=== PATIENT | male | born 1980 | race Caucasian/White ===

== ENCOUNTER 2023-09-04 22:13 | Emergency (ER) | payer BC, SELFPAY ==
[2023-09-04 22:22] VITALS: BP 170/82; PULSE 72; RESP 16; TEMP 36.7; O2SAT 97; BMI 24.4
--- NOTE | 2023-09-04 22:26 | XR_ITS ---
The [address] [address] Patient Name: ADRIENNE ASHLEY MRN: [id number] date: 1980 Sex: M Assigned Patient Location: ER Current Patient Location: ER Accession/Order Number: [id number] Exam Date: 09/04/2023 22:45 Report Date: 09/04/2023 23:15 At the request of: JONATHAN GAN Procedure: XR hand RT min 3V EXAM: XR hand RT min 3V HISTORY: hand pain COMPARISON: None TECHNIQUE: 3 views right hand FINDINGS: No acute fracture or aggressive osseous abnormality. Joint spaces and alignment are preserved. Carpal rows and arcs are maintained. XR/XR hand RT min 3V IMPRESSION: No acute osseous abnormality of the right hand. Electronically authenticated by: JAYDEN FONG Date: 09/04/2023 23:15
--- NOTE | 2023-09-04 23:44 | ED_ITS ---
HPI - General Adult General Chief complaint: Extremity Injury, Upper Stated complaint: PAIN IN RIGHT ARM Time Seen by Provider: 09/04/23 23:41 History of Present Illness HPI narrative: 43-year-old male presents her chief complaint of right hand pain and swelling. He also complains of pain that is creeping up into his arm. No streaking is noted at this time. He states he punched a washing machine several days ago. He states that pain has subsided and then he developed increased redness and swelling to his hand. 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 Patient has pain to palpation of the hand. Some amount of fluctuance no acute abscess Related Data Home Medications Medication Instructions Recorded Confirmed No Known Home Medications 09/04/23 09/04/23 Previous Rx's Medication Instructions Recorded cephalexin 500 mg capsule 500 mg PO BID 10 days #20 caps 09/04/23 sulfamethoxazole 800 1 tab PO BID 10 days #20 tabs 09/04/23 mg-trimethoprim 160 mg tablet (Bactrim DS) Allergies Allergy/AdvReac Type Severity Reaction Status Date / Time No Known Drug Allergies Allergy Verified 09/04/23 22:25 Review of Systems ROS Narrative All Systems are negative except as noted/marked.All systems reviewed and otherwise negative PFSH PFSH Social History Smoking status: Current every day smoker Exam Narrative Exam Narrative: Nurses note and vital signs reviewed and patient is not hypoxic. General: The patient appears well and in no apparent distress. Patient is resting comfortably on cart. Skin: Warm, dry, no pallor noted. There is no rash noted. Head: Normocephalic, atraumatic Eye: Normal conjunctiva, no drainage, EOMI. PERRL Musculoskeletal: Soft tissue swelling right hand, tenderness to palpation, full range of motion of hand fingers arms. Neurological: A&O x4, normal speech Psychiatric: Cooperative Constitutional Vital Signs, click to edit/add: Last Vital Signs Temp 98.1 F 09/04/23 22:22 Pulse 72 09/04/23 22:22 Resp 16 09/04/23 22:22 BP 170/82 H 09/04/23 22:22 Pulse Ox 97 09/04/23 22:22 O2 Del Method Room Air 09/04/23 22:22 Course Vital Signs Vital signs: Vital Signs Temperature 98.1 F 12/09/23 22:22 Pulse Rate 72 09/04/23 22:22 Respiratory Rate 16 09/04/23 22:22 Blood Pressure 170/82 H 09/04/23 22:22 Pulse Oximetry 97 09/04/23 22:22 Oxygen Delivery Method Room Air 09/04/23 22:22 Temperature 98.1 F 09/04/23 22:22 Pulse Rate 72 09/04/23 22:22 Respiratory Rate 16 09/04/23 22:22 Blood Pressure 170/82 H 09/04/23 22:22 Pulse Oximetry 97 09/04/23 22:22 Oxygen Delivery Method Room Air 09/04/23 22:22 Medical Decision Making MDM Narrative Medical decision making narrative: Patient presents to [place] chief complaint of injuring his hand well excellently punching a washing machine. Two days later he has not developed redness and sw elling to his hand. He also states he has pain radiating up into the arm. Right hand soft tissue swelling noted consistent with cellulitis, no acute abscess or area to drain at this time. Patient is able to move and extend fingers without difficulty. Patient has small abrasive area to the dorsal aspect of the 3rd digit at the base of the finger area. No active abscess at this time but his fluctuant this area. Patient told to continue using warm heat compress or ice for pain. She shows nothing acute for fracture. Patient was treated here for cellulitis of Bactrim Keflex. Will be discharged home with prescriptions for both. Reasons to return to the emergency room including no fever difficulty moving hands or streaking up the arm were discussed. Patient verbalized understanding agrees with plan of care. Differential Diagnosis Differential Diagnosis: Hand fracture, sprain, cellulitis Medical Records Medical records reviewed: Yes I reviewed the patient's medical records Lab Data Lab results reviewed: Yes I reviewed the patient's lab results Imaging Data hand: Attestation: I have reviewed the pertinent imaging results. My impression: Patient Name: ADRIENNE ASHLEY MRN: [id number] date: 1980 Sex: M Assigned Patient Location: ER Current Patient Location: ER Accession/Order Number: [id number] Exam Date: 09/04/2023 22:45 Report Date: 09/04/2023 23:15 At the request of: JONATHAN GAN Procedure: XR hand RT min 3V EXAM: XR hand RT min 3V HISTORY: hand pain COMPARISON: None TECHNIQUE: 3 views right hand FINDINGS: No acute fracture or aggressive osseous abnormality. Joint spaces and alignment are preserved. Carpal rows and arcs are maintained. IMPRESSION: No acute osseous abnormality of the right hand. Electronically authenticated by: JAYDEN FONG Date: 09/04/2023 23:15 Discharge Plan Discharge Chief Complaint: Extremity Injury, Upper Clinical Impression: Cellulitis of hand, Hand swelling Patient Disposition: Home, Self-Care Time of Disposition Decision: 23:42 Condition: Good Prescriptions / Home Meds: New cephalexin 500 mg capsule 500 mg PO BID 10 Days Qty: 20 0RF sulfamethoxazole-trimethoprim [Bactrim DS] 800-160 mg tablet 1 tab PO BID 10 Days Qty: 20 0RF No Action No Known Home Medications Instructions: Cellulitis (ED) Stand Alone Forms: Portal Instructions Referrals: Hang Naqvi MD [Primary Care Provider] - 1 week Discharge Date/Time: 09/05/23 00:22
[2023-09-05] MEDS: SULFAMETHOXAZOLE/TRIMETHOPRIM 800-160 MG TABLET 1 TAB PO (00:09)
[2023-09-05] MEDS: CEPHALEXIN 500 MG CAPSULE PO (00:09)
== END 2023-09-05 00:22 | disposition home or self-care (01) ==
PROVIDERS: Emergency Provider Internal Medicine; PCP Family Medicine
DX: L03.113 Cellulitis of right upper limb (principal); R22.31 Localized swelling, mass and lump, right upper limb; F17.210 Nicotine dependence, cigarettes, uncomplicated
CPT/HCPCS: 73130; 99283

== ENCOUNTER 2025-06-23 08:03 | Outpatient (OUT) | payer BC, SELFPAY ==
--- OUTSIDE RECORDS SUMMARY | 2025-05-09 11:14 | XMS_ITS ---
Author Name Auto Generated Organization [facility] Care Team Providers Care Rn Charge Name Role Phone ANDREEA TORO Attending Unavailable PROBLEMS No Problem Records Found PROCEDURES No Procedure Records Found RESULTS No Result Records Found ALLERGIES No Allergies Records Found ENCOUNTERS ADMIT/DISCHARGE ACCOUNT NUMBER ADMITTING ENCOUNTER CLASS LOCATION SOURCE 05/09/2025/ [id number] Ambulatory Building:[facility] EPIC PAYERS ENCOUNTER GUARANTOR PAYER SUBSCRIBER SOURCE 05/09/2025 ADRIENNE COLINDRESB: [id number] [address] [address]Znp: () Primary Insurance:[employer] licy Number: [id number] ctive Date:2019-09-27 ADRIENNE FERRIS: [id number] [address] [address] [facility] EPIC
--- NOTE | 2025-06-23 | US_ITS ---
[address] [address] Patient Name: ADRIENNE ASHLEY MRN: [id number] date: 1980 Sex: M Assigned Patient Location: US Current Patient Location: Accession/Order Number: [id number] Exam Date: 06/23/2025 08:11 Report Date: 06/23/2025 19:24 At the request of: ANDREEA TORO MD Procedure: US scrotum EXAMINATION TYPE: US scrotum grayscale, color Doppler, waveform duplex analysis was performed. DATE OF EXAM ORDERED: 06/23/2025 8:30 AM HISTORY: SCROTAL MASS N50.89, swelling COMPARISON: NONE TECHNIQUE: Realtime imaging of the scrotum was performed. De Jesus scale, color Doppler and spectral Doppler imaging of the testicles was performed. FINDINGS: Testicles: Both testicles demonstrate homogeneous echotexture without intratesticular filling defect. Right measurements: 4.9 x 2.8 x 3.1 cm Left measurements: 4.8 x 3.1 x 3.1 cm Epididymis: The bilateral epididymides demonstrate normal echogenicity without focal lesion. Right measurements: 0.7 cm in greatest dimension Left measurements: 1.6 cm in greatest dimension Hydrocele: A left-sided hydrocele is present. Doppler ultrasound of the testicles: Arterial and venous waveforms are seen within both testicles. No sonographic evidence of testicular ischemia. US/US scrotum IMPRESSION: 1. The testicles are normal in size and echogenicity. No intratesticular lesions. 2. No sonographic evidence of testicular ischemia. 3. A left-sided hydrocele is present. Impression dictated by: Alex Dunn M.D. 06/23/2025 7:24 PM Dictation Location: [place] [address] Electronically authenticated by: [id number] Y Date: 06/23/2025 19:24
== END 2025-06-23 08:04 | disposition home or self-care (01) ==
PROVIDERS: PCP Family Medicine; Visit Provider Family Medicine
DX: N50.89 Other specified disorders of the male genital organs (principal); N43.3 Hydrocele, unspecified
CPT/HCPCS: 76870

== ENCOUNTER 2025-08-05 08:16 | Emergency (ER) | payer BC, SELFPAY ==
[2025-08-05] VITALS (17 sets, daily range): BP systolic 117–134; BP diastolic 83–94; PULSE 71–84; TEMP 36.5; O2SAT 93–99; BMI 24.3
--- NOTE | 2025-08-05 08:34 | ECG_ITS ---
The 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 Measurements Intervals [place] Rate: 75 P: 58 AR: 200 QRS: -51 QRSD: 134 T: 22 QT: 400 QTc: 429 Interpretive Statements 1100 Sinus rhythm 2450 Right bundle branch block 2630 Left anterior fascicular block 9150 abnormal ECG No previous ECG available for comparison Electronically Signed On 08-05-2025 9:32:40 EST by REY COBB M.D.
--- OUTSIDE RECORDS SUMMARY | 2025-08-05 08:37 | XMS_ITS | CCD ---
Author Organization [facility] Care Team Providers Care General Maintenance Technician Name Role Phone ANICETO DORADO Admitting Unavailable ANICETO DORADO Attending Unavailable ANICETO DORADO Consulting Unavailable Hang Toro MD Primary Care Provider Hang Toro MD Unavailable HANG TORO Attending Unavailable HANG TORO Primary Care Physician [phone] Gen HORTA Attending Unavailable Gen HORTA Attending Unavailable HANG TORO Referring Unavailable Allergies Allergy ClassificationReported Allergen(s)Allergy TypeDate of OnsetReaction(s) Facility (1 source)No Known Medication Allergies; Translations: [No Known Medication Allergies]Propensity to adverse reactions (disorder)[facility] Repository Medications Current Medications MedicationDrug Class(es)DatesSig (Normalized)Sig (Original)24 hr buPROPion hydrochloride 150 mg extended release oral tablet (5 sources)AminoketoneStart: 11-29-2023 End: 43-84-6292jvmi 1 tablet by mouth every twenty-four hours in the morning buPROPion XL (Wellbutrin XL) 150 MG 24 hr tablet Indications: MDD (major depressive disorder), recurrent episode, moderate (HCC) TAKE 1 TABLET (150 MG) BY MOUTH IN THE MORNING. DO NOT CRUSH, CHEW, ORSPLIT.. 90 tablet 1 11/29/2023 05/09/2025 DiscontinuedStart: 16-10-2707souf 1 tablet by mouth every twenty-four hours in the morningbuPROPion XL (Wellbutrin XL) 150 MG 24 hr tablet Indications: MDD (major depressive disorder), recurrent episode, moderate (HCC) (CMS/HCC) Take 1 tablet (150 mg) by mouth in the morning. Do not crush, chew, or split.. 30 tablet 2 11/04/2023 ActiveStart: 56-15-3170xbrs 1 tablet by mouth every twenty-four hours in the morningbuPROPion XL (Wellbutrin XL) 150 MG 24 hr tablet Indications: MDD (major depressive disorder), recurrent episode, moderate (HCC) (CMS/HCC) Take 1 tablet (150 mg) by mouth in the morning. Do not crush, chew, or split.. 30 tablet 2 11/04/2023 ActivebusPIRone hydrochloride 15 mg oral tablet (8 sources)Start: 11-29-2023 End: 07-70-0819vnzj 1 tablet by mouth in the morning, then take 1 tablet by mouth in the evening, then take 1 tablet by mouth at bedtimebusPIRone (Buspar) 15 MG tablet Indications: Generalized anxiety disorder Take 1 tablet (15 mg) by mouth in the morning and 1 tablet (15 mg) in the evening and 1 tablet (15 mg) before bedtime. 90 tablet 5 11/29/2023 05/09/2025 DiscontinuedStart: 11-04-2023 take 1 tablet by mouth in the morningbusPIRone (Buspar) 15 MG tablet Indications: Generalized anxiety disorder (CMS/HCC) Take 1 tablet (15 mg) by mouth in the morning and 1 tablet (15 mg) before bedtime. 60 tablet 3 11/04/2023 ActiveStart: 84-54-8753qjjo 1 tablet by mouth in the morningbusPIRone (Buspar) 15 MG tablet Indications: Generalized anxiety disorder (CMS/HCC) Take 1 tablet (15 mg) by mouth in the morning and 1 tablet (15 mg) before bedtime. 60 tablet 3 11/04/2023 ActiveStart: 10-08-2023 End: 23-10-1151lzdz 1 tablet by mouth in the morningbusPIRone (Buspar) 7.5 MG tablet Indications: Generalized anxiety disorder (CMS/HCC) Take 1 tablet (7.5 mg) by mouth in the morning and 1 tablet (7.5 mg) before bedtime. 60 tablet 3 10/08/2023 11/04/2023 Discontinued (Reorder)citalopram 20 mg oral tablet (2 sources)Serotonin Reuptake InhibitorStart: 10-08-2023 End: 16-74-5760wpxb 1 tablet by mouth in the morningcitalopram (CeleXA) 20 MG tablet Indications: MDD (major depressive disorder), recurrent episode, moderate (HCC) (CMS/HCC) Take 1 tablet (20 mg) by mouth in the morning. 30 tablet 3 10/08/2023 11/04/2023 Discontinuedpermethrin 50 mg/ml topical cream (3 sources)PyrethroidStart: 08-04-2024 End: 75-37-7167oqwpxqqans (Elimite) 5 % cream Indications: Head lice apply to skin from hairline to toes and wash off 8-10 hours later 60 g 1 08/04/2024 05/09/2025 Discontinued Problems Active Problems Problem ClassificationProblemDateDocumented DateEpisodic/ChronicAnxiety disorders (9 sources)Generalized anxiety disorder; Translations: [Generalized anxiety disorder]Onset: [id number]; including migraine (1 source)Upgrasyo48-97-1280ZxkxtohuEnno disorders (8 sources)Recurrent major depressive episodes, moderate ; Translations: [Major depressive disorder, recurrent, moderate]Onset: 190936-99-0036LxmwozlRlyty female genital disorders (1 source)Disorder of reproductive tnzoll65-59-2109NefspwppEfaua male genital disorders (4 sources)Scrotal mass; Translations: [Other specified disorders of the male genital organs]Onset: 476471-41-4937JyhwszpvVdcye male genital disorders (1 source)Hydrocele of testis; Translations: [Hydrocele, unspecified]Onset: 36-28-4827GroovmumMqbyqvixa-related disorders (1 source)Owybpa04-73-1650YusgbfqVtxlilk on above:Added secondary to documentation in Social History.Unclassified (1 source)Myalgia, unspecified site; Translations: [MYALGIA UNSPECIFIED SITE] Onset: 72-05-5583Tjbydbahcxhk (1 source)Harmful pattern of substance btn89-54-9902 Past or Other Problems Problem ClassificationProblemDateDocumented DateEpisodic/ChronicGenitourinary symptoms and ill-defined conditions (6 sources)Microscopic hematuria; Translations: [Other microscopic hematuria] Onset: 10-08-2023 Resolved: 267242-07-4414KcnangtaFrwtnix and fatigue (10 sources)Other fatigue; Translations: [Fatigue]Onset: 05-23-2019 Resolved: 172445-52-0600IqrdtqzzElghm connective tissue disease (6 sources)Muscle pain; Translations: [Myalgia, unspecified site]Onset: 608112-36-6495KwaozheiQoqzq non-traumatic joint disorders (6 sources)Pain in left knee; Translations: [Pain in joint, lower leg]Onset: 906931-49-4161WguvlystRqnioe media and related conditions (6 sources)Otitis media; Translations: [Otitis media, unspecified, left ear] Onset: 10-08-2023 Resolved: 430114-36-1403KsqjfgcoTmycijtlqlp; intervertebral disc disorders; other back problems (6 sources)Chronic low back pain; Translations: [Chronic low back pain]Onset: 371939-96-6542Geoqzpvw Results Test NameValueInterpretationReference RangeFacilityAmbulatory Visit Summaryon 20-57-0147Hdigdyjrwr Visit SummaryAmbulatory Visit Summary ADRIENNE ASHLEY :1980 Visit Date:07/16/2025 Ambulatory Visit Instructions Your Diagnosis Left hydrocele Your Care Team Attending Physician - HERNÁN FOLEY, Gen Kulkarni Primary Care Physician - CORTEZ FOLEY, HANG Referring Physician - HANG TORO MD Procedures Performed Procedure on back. Discharge Vitals Temperature (Temporal Artery) 37 ???C Heart Rate (Peripheral) 78 Respiratory Rate 16 Blood Pressure 134/86 Height 180 cm Height 71 in Weight 81.2 kg Weight 179.015 lb BMI 25.06 What to do next Scheduled Follow-Up Appointments Wednesday2025 10:15 AM EDT With: Gen HORTA MD Where: [facility] [address] [place] [address]- You Need to Schedule the Following Appointments Follow Up with Gen HORTA MD, URL When: Where: [address] [place] [address] Allergies No Known Medication Allergies Problems Ongoing - Any problem that you are currently receiving treatment for. Abuse, drug or alcohol Headache Left hydrocele Smoker Patient Survey You may receive a survey via text or e-mail asking about your office visit. Please share your experience with us by completing your survey. We appreciate your feedback and thank you for choosing us for your care. Education Materials Steps to Quit Smoking Smoking tobacco is the leading cause of preventable . It can affect almost every organ in the body. Smoking puts you and those around you at risk for developing many serious chronic diseases. Quitting smoking can be very challenging. Do not get discouraged if you are not successful the first time. Some people need to make many attempts to quit before they achieve long-term success. Do your best to stick to your quit plan, and talk with your health care provider if you have any questionsor concerns. How do I get ready to quit? When you decide to quit smoking, create a plan to help you succeed. Before you quit: ??? Pick a date to quit. Set a date within the next 2 weeks to give you time to prepare. ??? Write down the reasons why you are quitting. Keep this list in places where you will see it often. ??? Tell your family, friends, and co-workers that you are quitting. Support from people you are close to can make quitting easier. ??? Talk with your health care provider about your options for quitting smoking. ??? Find out what treatment options are covered by your health insurance. ??? Identify people, places, things, and activities that make you want to smoke (triggers). Avoid them. What first steps can I take to quit smoking? Throw away all cigarettes at home, at work, and in your car. ??? Throw away smoking accessories, such as ashtrays and lighters. ??? Clean your car. Make sure to empty the ashtray. ??? Clean your home, including curtains and carpets. What strategies can I use to quit smoking? Talk with your health care provider about combining strategies, such as taking medicines while you are also receiving in-person counseling. Using these two strategies together makes you more likely to succeed in quitting than if you used either strategy on its own. If you are or , talk with your health care provider about finding counseling or other support strategies to quit smoking. Do not take medicine to help you quit smoking unless your health care provider tells you to. Quit right away ??? Quit smoking completely, instead of gradually reducing how much you smoke over a period of time. Stopping smoking right away may be more successful than gradually quitting. ??? Attend in-person counseling to help you build problem-solving skills. You are more likely to succeed in quitting if you attend counseling sessions regularly. Even short sessions of 10 minutes can be effective. Take medicine You may take medicines to help you quit smoking. Some medicines require a prescription. You can also purchase atjv-ayb-xmvlwnp medicines. Medicines may have nicotine in them to replace the nicotine in cigarettes. Medicines may: ??? Help to stop cravings. ??? Help to relieve withdrawal symptoms. Your health care provider may recommend: ??? Nicotine patches, gum, or lozenges. ??? Nicotine inhalers or sprays. ??? Non-nicotine medicine that you take by mouth. Find resources Find resources and support systems that can help you quit smoking and remain smoke-free after you quit. These resources are most helpful when you use them often. They include: ??? Online chats with a counselor. ??? Telephone quitlines. ??? Printed self-help materials. ??? Support groups or group counseling. ??? Text messaging programs. ??? Mobile phone apps or applications. Use apps that can help you stick to your quit plan by providing reminders, (more content not included)...[facility] Center[facility] Office/Clinic Noteon 65-73-7785Vnufzwd Office/Clinic Note Urology Office/Clinic Note Chief Complaint hydrocele HPI Staff 45 yr old male referred by Hang Toro MD for Left hydrocele. Left hydrocele noted on Scrotal US done 06/23/25. IPSS score today is 4. Nocturia x1. Frequency less than half the time. Incomplete emptying less than 1 in 5x. Denies all other urinary concerns at this time. Pt states that he noticed a lump on his testicle about 4 months ago. States that it is uncomfortable but not really painful. Denies any trauma to the scrotum. History of Present Illness Tests reviewed: reviewed UA, referral records, scrotal US I have reviewed the previous health record information and history for this patient from external providers. I have reviewed and verified the staff HPI to be accurate for this encounter. Review of Systems PHQ Score Initial Depression Screen Score: 0 SCORE ROS - Provider Constitutional: denies weight loss, denies hot flashes. Eyes: denies eye problems. Gastrointestinal: denies nausea, denies vomiting. Cardiovascular: denies chest pain or angina. Integumentary: no dryness Musculoskeletal: denies musculoskeletal symptoms. ENMT: denies otolaryngeal symptoms. Respiratory: no shortness of breath. Heme/Lymph: denies easy bleeding tendency, denies easy bruising tendency. Psychiatric: no confusion, no anxiety. Genitourinary: See HPI. Physical Exam Vitals & Measurements T: 37 ???C(Temporal Artery) HR: 78(Peripheral) RR: 16 BP: 134/86 HT: 71 in HT: 180 cm WT: 81.2 kg WT: 179.015 lb BMI: 25.06 General Appearance: alert, no distress, well nourished, well developed male. Genitourinary: large left hydrocele. Assessment/Plan Adrienne is a 45 yo M new pt referred for L hydrocele. IPSS 4. UA shows trace-intact blood, clinically neg. No bother with urination. 1. Left hydrocele (N43.3: Hydrocele, unspecified) Scrotal US 06/23/25 [facility] - L hydrocele. Noticed scrotal mass several months ago. Mild discomfort 1x/month but denies bother. Discussed the options for his hydrocele. There is no absolute indication that he needs this repaired. Do not recommend aspiration. As the fluid collection increases in size and becomes more symptomatic, he may consider repair. There is a 10-15% chance of recurrence of this scrotal fluid collection, which may require another procedure in the future. Given lack of effect on urination or other activities, intervention is not warranted. However large size does make him a candidate for hydrocelectomy. Pt would like to monitor for now. -F/u 1 yr -Cont self-monitoring, call if hydrocele enlarges/becomes bothersome Follow-up With When Contact Information HERNÁN FOLEY, Gen Kulkarni, URL [address] [facility] [place] [address] Additional Instructions: 1 yr (no labs) Patient Education Hydrocele, Adult I, Shy Benton, personally scribed for Dr. Horta on 07/16/2025 10:39:05. . Documentation recorded by the Shy tolliver, accurately reflects the services(s) I performed and decisions made by me. Authenticated by Dr. Horta on 07/16/2025 10:45:57. Problem List/Past Medical History Ongoing Abuse, drug or alcohol Headache Left hydrocele Smoker Historical No qualifying data Procedure/Surgical History Procedure on back. Medications No active medications Allergies No Known Medication Allergies Social History Tobacco Smoker, current status unknown Tobacco Use:. Never Smokeless Tobacco Use:. Cigarettes, 07/16/2025 Lab Results Ambulatory Point of Care Results Bilirubin Urine Dipstick: Negative (07/16/25 10:05:00) Blood Urine Dipstick: Trace-intact (07/16/25 10:05:00) Glucose Urine Dipstick: Negative (07/16/25 10:05:00) Ketones Urine Dipstick: Negative (07/16/25 10:05:00) Leukocytes Urine Dipstick: Negative (07/16/25 10:05:00) Nitrite Urine Dipstick: Negative (07/16/25 10:05:00) Protein Urine Dipstick: Negative (07/16/25 10:05:00) Specific [place] Urine Dipstick: 1.015 (07/16/25 10:05:00) Urine Appearance Urine Dipstick: Clear (07/16/25 10:05:00) Urine Color Urine Dipstick: Yellow (07/16/25 10:05:00) Urobilinogen Urine Dipstick: Normal 0.2-1 EU/dl (07/16/25 10:05:00) pH Urine Dipstick: 7.5 (07/16/25 10:05:00)[facility] Comment on above:Result Comment: Electronically Signed By: Gen HORTA MD\.br\Date and Time Signed: 07/16/25 10:46 EDT\.br\Electronically Co-Signed By: Shy Benton\Date and Time Co-Signed: 07/16/25 10:39 EDTCBC AUTO DIFFon 79-10-9095Yogghviwf (Bld) [#/Vol]0.1 103/ulNormal0.0-0.1[facility] [place] [facility] Comment on above:Performed By: #### CBC #### [facility] [address] [place] [address] Audra KarenBasophils/100 WBC (Bld)0.8 %Normal0.2-2.0[facility] Comment on above:Performed By: #### CBC #### [facility] [address] [place] [address] Audra KarenEosinophils (Bld) [#/Vol]0.0 103/ulNormal0.0-0.7[facility] [place] [facility] HospitalComment on above:Performed By: #### CBC #### [facility] [address] [place] [address] Audra KarenEosinophils/100 WBC (Bld)0.5 %Critically low0.9-7.0[facility] [place] [facility] HospitalComment on above:Performed By: #### CBC #### [facility] [address] [place] [address] Audra KarenErythrocyte distribution width (RBC) [Ratio]13.3 %Pvyubm32.0-15.0[facility] [place] [facility] HospitalComment on above:Performed By: #### CBC #### [facility] [address] [place] [address] Audra KarenHematocrit (Bld) [Volume fraction]45.7 %Agyabh20.0-54.0[facility] [place] [facility] HospitalComment on above:Performed By: #### CBC #### [facility] [address] [place] [address] Audra KarenHemoglobin (Bld) [Mass/Vol]15.7 g/qSUknzzz91.0-18.0[facility] [place] [facility] HospitalComment on above:Performed By: #### CBC #### [facility] [address] [place] [address] Audra KarenIG #0.01 10e3/ulNormal0.00-0.03[facility] [place] [facility] HospitalComment on above:Performed By: #### CBC #### [facility] [address] [place] [address] Audra KarenIG %0.2 %Normal0.0-0.5[facility] [place] [facility] HospitalComment on above: Performed By: #### CBC #### [facility] [address] [place] [address] Audra KarenLymphocytes (Bld) [#/Vol]1.0 103/ulCritically low1.2-3.8[facility] [place] [facility] HospitalComment on above:Performed By: #### CBC #### [facility] [address] [place] [address] Audra KarenLymphocytes/100 WBC (Bld)16.0 %Critically low20.5-60.0[facility] [place] [facility] HospitalComment on above:Performed By: #### CBC #### [facility] [address] [place] [address] Audra KarenMANUAL DIFF REQNONormalThe [place] [facility] HospitalComment on above: Performed By: #### CBC #### [facility] [address] [place] [address] Audra KarenMCH (RBC) [Entitic mass]31.2 woItvnqs53.9-34.0[facility] Comment on above:Performed By: #### CBC #### [facility] [address] [place] [address] Audra KarenMCHC (RBC) [Mass/Vol]34.4 g/lAAyowfw22.9-35.2[facility] Comment on above:Performed By: #### CBC #### [facility] [address] [place] [address] Audra KarenMCV (RBC) [Entitic vol]90.7 oQFplqid93.0-94.0[facility] Comment on above:Performed By: #### CBC #### [facility] [address] [place] [address] Audra KarenMonocytes (Bld) [#/Vol]0.6 103/ulNormal0.3-0.8ThC[facility] Comment on above:Performed By: #### CBC #### [facility] [address], [place] [address] Audra KarenMonocytes/100 WBC (Bld)9.5 %Normal1.7-12.0[facility] Comment on above:Performed By: #### CBC #### [facility] [address] [place], [place] [id number] Audra KarenNeutrophils (Bld) [#/Vol]4.4 103/ulNormal1.4-6.5The [place] [facility] HospitalComment on above:Performed By: #### CBC #### [facility] [address] [place], [place] [id number] Audra KarenNeutrophils/100 WBC (Bld)73.0 %Tmjcgt76.0-75.0[facility] Comment on above:Performed By: #### CBC #### [facility] [address] [place] [address] Audra KarenPlatelet mean volume (Bld) [Entitic vol]9.6 fLNormal9.5-13.5The [place] [facility] HospitalComment on above:Performed By: #### CBC #### [facility] [address] [place], [place] [address] Audra KarenPlatelets (Bld) [#/Vol]248 103/fjQhryuw762-452FqxCleveland Clinic Foundation Comment on above:Performed By: #### CBC #### [facility] [address] [place], [place] [id number] Audra KarenRBC (Bld) [#/Vol]5.04 106/ulNormal4.70-6.10[facility] Comment on above:Performed By: #### CBC #### [facility] [address] [place], [place] [address] Audra KarenWBC (Bld) [#/Vol]6.0 103/ulNormal4.0-11.0[facility] Comment on above:Performed By: #### CBC #### [facility] [address] [place], [place] [id number] Audra KarenCPKon 76-81-6797DQ [Catalytic activity/Vol]108 U/PNwqden21-795Gcv [facility] HospitalComment on above:Performed By: #### CRP, TSH, CK, CMP #### [facility] [address] [place] [address] Audra KarenCRPon 14-74-6118HFL [Mass/Vol]4.3 mg/dLCritically high<=1.0The [place] [facility] HospitalComment on above:Performed By: #### CRP, TSH, CK, CMP #### [facility] [address] [place] [address] Audra KarenFREE T4on 03-59-6140Hnpw T4 [Mass/Vol]0.89 ng/dLNormal0.78-2.19The [place] [facility] HospitalComment on above:Performed By: #### FT4 #### [facility] [address] [place] [address] Audra KarenPROF 14(COMP METB)on 63-73-4376Aerxnda [Mass/Vol]3.7 g/dLNormal 3.5-5.0The [place] [facility] HospitalComment on above:Performed By: #### CRP, TSH, CK, CMP #### [facility] [address] [place] [address] Audra KarenAlbumin/Globulin [Mass ratio]1.1 {ratio}NormalCleveland Clinic Foundation Comment on above:Performed By: #### CRP, TSH, CK, CMP #### [facility] [address] [place] [address] Audra KarenALP [Catalytic activity/Vol]92 U/MLgeasi61-351Jeu [facility] Comment on above:Performed By: #### CRP, TSH, CK, CMP #### [facility] [address] [place] [address] Audra KarenALT [Catalytic activity/Vol]24 U/GAoynvv30-09Cyv [facility] Comment on above:Performed By: #### CRP, TSH, CK, CMP #### [facility] [address] [place] [address] Audra KarenAnion gap [Moles/Vol]11.7 mmol/LNormalThe [place] [facility] HospitalComment on above:Performed By: #### CRP, TSH, CK, CMP #### [facility] [address] [place] [address] Audra KarenAST [Catalytic activity/Vol]21 U/RBxpbiz62-17StrC[facility] Clinic Foundation Comment on above:Performed By: #### CRP, TSH, CK, CMP #### [facility] [address] [place] [address] Audra KarenBilirubin Ql (U)0.7 mg/dLNormal0.2-1.3TBethesda North HospitalComment on above:Performed By: #### CRP, TSH, CK, CMP #### [facility] [address] [place] [address] Audra KarenCalcium [Mass/Vol]9.2 mg/dLNormal8.4-10.2[facility] Comment on above:Performed By: #### CRP, TSH, CK, CMP #### [facility] [address] [place] [address] Audra KarenChloride [Moles/Vol]104 mmol/AAmikda02-426VyyCleveland Clinic Foundation Comment on above:Performed By: #### CRP, TSH, CK, CMP #### [facility] [address] [place] [address] Audra KarenCO2 [Moles/Vol]28.0 mmol/OYxqayw39.0-30.0[facility] Comment on above:Performed By: #### CRP, TSH, CK, CMP #### [facility] [address] [place] [address] Audra KarenCreatinine [Mass/Vol]0.88 mg/dLNormal0.66-1.25The [facility] Comment on above:Performed By: #### CRP, TSH, CK, CMP #### [facility] [address] [place] [address] Audra KarenEGFR-AF HUNGARIAN>60Normal>=60The [place] [facility] HospitalComment on above: Performed By: #### CRP, TSH, CK, CMP #### [facility] [address] [place], [place] [address] Audra KarenEGFR-NON AF HUNGARIAN>60Normal>=60The [place] [facility] HospitalComment on above:Performed By: #### CRP, TSH, CK, CMP #### [facility] [address] [place] [address] Audra KarenGlobulin (S) [Mass/Vol]3.3 g/dLNormUniversity Hospitals Health SystemComment on above:Performed By: #### CRP, TSH, CK, CMP #### [facility] [address] [address] Audra KarenGlucose [Mass/Vol]89 mg/jUZsuoxv55-964Gja [facility] HospitalComment on above:Performed By: #### CRP, TSH, CK, CMP #### [facility] [address] [place] [address] Audra KarenPotassium [Moles/Vol]3.7 mmol/LNormal3.4-5.0[facility] Comment on above:Performed By: #### CRP, TSH, CK, CMP #### [facility] [address] [place] [address] Audra KarenProtein [Mass/Vol]7.0 g/dLNormal6.1-8.2The [place] [facility] HospitalComment on above:Performed By: #### CRP, TSH, CK, CMP #### [facility] [address] [place] [address] Audra KarenSodium [Moles/Vol]140 mmol/YMkcrqq879-349Qny [facility] Comment on above:Performed By: #### CRP, TSH, CK, CMP #### [facility] [address] [place] [address] Audra KarenUrea nitrogen [Mass/Vol]11.0 mg/dLNormal9.0-20.0The [facility] HospitalComment on above:Performed By: #### CRP, TSH, CK, CMP #### [facility] [address] [place] [address] Audra KarenUrea nitrogen/Creatinine [Mass ratio]12.5 mg/mgNormalThCleveland Clinic Fairview HospitalComment on above:Performed By: #### CRP, TSH, CK, CMP #### [facility] [address] [place] [address] Audra KarenSED RATE WESTERGRENon 05-79-2007JKN RATE12 mm/hrNormal<=15The [facility] HospitalComment on above:Performed By: #### SEDR #### [facility] [address] [place] [address] Audra KarenSEDRHMETHOD AND NORMAL CHANGE 11/01/15. RESULTS ARE NOT AFFECTED BY HEMATOCRIT.NormalThe [facility] HospitalComment on above:Performed By: #### SEDR #### [facility] [address] [place] [address] Audra KarenTSHon 86-19-8557JLE QnSEE BELOWNormalThCleveland Clinic Fairview HospitalComment on above:Result Comment: <0.34 UIU/ml HYPERTHYROID 0.34-5.60 UIU/ml EUTHYROID >5.60 UIU/ml HYPOTHYROIDPerformed By: #### CRP, TSH, CK, CMP #### [facility] [address] [place] [address] Audra KarenTSH Qn3.486 uIU/mLNormal0.470-4.680The [facility] HospitalComment on above:Performed By: #### CRP, TSH, CK, CMP #### [facility] [address] [place] [address] Audra KarenUA RANDOM W/MICROSCOPICon 12-90-9319Xvqswera LM.HPF (Urine sed) [#/Area]NONE SEENNormalNONE SEENThe [facility] HospitalComment on above:Performed By: #### UAMIC #### [facility] [address] [place] [address] Audra KarenBilirubin [Mass/Vol]NegativeNormalNEGATIVECleveland Clinic Foundation Comment on above:Performed By: #### UAMIC #### [facility] [address] [place] [address] Audra KarenBLOODSMALLNormalNEGATIVECleveland Clinic FoundationComment on above: Performed By: #### UAMIC #### [facility] [address] [place] [address] Audra KarenCASTNONE SEENNormalNONE SEENCleveland Clinic FoundationComment on above: Performed By: #### UAMIC #### [facility] [address] [address] Audra KarenClarity (U)CLEARNoKeenan Private HospitalComment on above: Performed By: #### UAMIC #### [facility] [address] [place] [address] Audra KarenColor (U)LT. YELLOWNormalYELLOWCleveland Clinic FoundationComment on above:Performed By: #### UAMIC #### [facility] [address] [place] [address] Audra KarenCrystals LM Nom (Urine sed)NONE SEENNormalNONE SEENCleveland Clinic FoundationComment on above:Performed By: #### UAMIC #### [facility] [address] [place] [address] Audra KarenEpithelial cells LM.HPF (Urine sed) [#/Area]RAREAvita Health System Galion HospitalComment on above:Performed By: #### UAMIC #### [facility] [address] [place] [address] Audra KarenGlucose [Mass/Vol]NegativeNormalNEGATIVECleveland Clinic FoundationComgarden city hospital on above:Performed By: #### UAMIC #### [facility] [address] [place] [address] Audra KarenKetones Ql (U)NegativeNormalNEGATIVECleveland Clinic FoundationComment on above:Performed By: #### UAMIC #### [facility] [address] [place] [address] Audra KarenMUCOUSNONE SEENNormalNONE [facility] HospitalComg[facility] on above: Performed By: #### UAMIC #### [facility] [address] [place] [address] Audra KarenNitrite Ql (U)NegativeNormalNEGATIVECleveland Clinic FoundationComment on above:Performed By: #### UAMIC #### [facility] [address] [place] [address] Audra KarenpH (Bld)7.7Dkrmuv5-0HbsCleveland Clinic FoundationComment on above:Performed By: #### UAMIC #### [facility] [address] [place] [address] Audra KarenProtein [Mass/Vol]NegativeNormUniversity Hospitals Health SystemComment on above:Performed By: #### UAMIC #### [facility] [address] [place] [address] Audra KarenRBC (Bld) [#/Vol]9-7Rtgrzo5-2Ntn [facility] HospitalComment on above: Performed By: #### UAMIC #### [facility] [address] [place] [address] Audra KarenSPEC GRAVITY<=1.074Qwyjef4.005-<=1.025The [facility] HospitalComment on above:Performed By: #### UAMIC #### [facility] [address] [place] [address] Audra KarenUrobilinogen Qn (U)0.2 EU/dlNormUniversity Hospitals Health SystemComment on above:Performed By: #### UAMIC #### [facility] [address] [place] [address] Audra KarenWBC (Bld) [#/Vol]NegativeNormalNEGATIVECleveland Clinic FoundationComment on above:Performed By: #### UAMIC #### [facility] [address] [place] [address] Audra KarenWBC (Bld) [#/Vol]NONE SEENNormalNONE SEENCleveland Clinic Foundation Comment on above:Performed By: #### UAMIC #### [facility] [address] [place] [address] Audra Galvanen Vital Signs Date TimeVital SignValuePerforming KzaymuwegBdlqgadl20-30-7864 11:30-0400Body owcqta165.3 cmHang Toro MD Work Phone: [facility]OSaint [facility] SpringsTgryxtezgu21-41-4281 11:30-0400Body mass index (BMI) [Ratio]24.55 kg/m2Hang Toro MD Work Phone: [facility] CenterXojrujwtkl84-99-4835 11:30-0400Body temperature 97.3 [degF]Hang Toro MD Work Phone: [facility] CenterOiqlyqluat70-57-8044 11:30-0400Body myoegj38.83 kgHang Toro MD Work Phone: [facility] CenterLitfhxwjwt49-18-0312 11:30-0400Diastolic blood innftxqe75 mm[Hg]Hang Toro MD Work Phone: [facility] CenterThkdjqzwel22-78-1586 11:30-0400Heart rate85 /min Hang Toro MD Work Phone: [facility] CenterWdinndbrfk04-10-8305 11:30-0400Respiratory rate18 /minHang Toro MD Work Phone: [facility] CenterUkfboqnfxl81-89-2835 11:30-1270SrF0% (BldA) [Mass fraction]92 %Hang Toro MD Work Phone: [facility] CenterWjhomocvek09-92-0527 11:30-0400Systolic blood hslnokps753 mm[Hg]Hang Toro MD Work Phone: [facility] CenterMfywxysmdh87-66-1046 09:40-0500Body hclzia715.3 cmHang Toro MD Work Phone: [facility] CenterTlagainsic94-92-4145 09:40-0500Body mass index (BMI) [Ratio]26.5 kg/m2Hang Toro MD Work Phone: [facility] CenterHnmfkddomg97-85-7252 09:40-0500Body temperature 97.81 [degF]Hang Toro MD Work Phone: [facility] CenterUefxjmsqjz78-12-7332 09:40-0500Body xsxwoh62.18 kgHang Toro MD Work Phone: [facility] CenterZattxvfmma51-40-9502 09:40-0500Diastolic blood jkgapmjz84 mm[Hg]Hang Toro MD Work Phone: [facility] Ogvuyjioch04-89-5504 09:40-0500Heart rate74 /min Hang Toro MD Work Phone: [facility] Taqsewtcqh39-97-1626 09:40-2851RzW2% (BldA) [Mass fraction]96 %Hang Toro MD Work Phone: [facility] Iiwgdbyvwe61-13-9956 09:40-0500Systolic blood gqsipatl866 mm[Hg]Hang Toro MD Work Phone: [facility] Encounters Encounter DateEncounter TypeCare ProviderFacilityStart: 57-08-1750ijqbxumuixpablo HORTAFacility:[place]Start: 07-16-2025 End: 33-16-5082zahwdryilnYsnmovb R WATERSFacility:[facility] [place]Start: 07-16-2025 End: 83-16-6303Bvigtne encounter procedurePazac HORTA [facility] Cristiana start: 76-00-6876qiqkwovcxaXqzxcyt WATERSFacility:EU [place]Start: 05-09-2025 End: 25-16-4054Nyvesi Maria C Toro MD Work Phone: [facility] FMStart: 05-09-2025 End: 68-28-5030Uqyjcs flowsKaran Toro MD Work Phone: [facility] FMStart: 05-09-2025 End: 13-69-6052Vsvswh outpatient visit 25 minutesHang Toro MD Work Phone: [facility] CWM FMComment on above:Mass, scrotum (Primary Dx) Start: 05-09-2025 End: 35-64-6184pzkhmwmxjpKSOK NADERERNot AvailableStart: 51-08-5741QuvnddZlpg Naderer MD Work Phone: [facility] FMComment on above:Generalized anxiety disorder (CMS/HCC)Start: 11-04-2023 End: 72-54-0228Fgqfdl outpatient visit 15 minutesHang Toro MD Work Phone: noMS CWM FMComment on above:MDD (major depressive disorder), recurrent episode, moderate (HCC) (CMS/HCC) (Primary Dx); Generalized anxiety disorder (CMS/HCC)Start: 05-23-2019 End: 13-18-2658Agjpumy encounter procedureLISA AICHHOLZFacility:H1 Procedures DateProcedureProcedure DetailPerforming ClinicianProcedure on backPanprogress Plan of Treatment DateCare ActivityDetailAuthorStart: 06-54-7671Xfvgrcoac vaccinationInfluenza Vaccine (#1)[facility] HealthcareStart: 05-09-2025 End: 77-21-0108HK Scrotum and testicleUS scrotum Imaging Routine Mass, scrotum Expected: 05/09/2025, Expires: 05/09/2026[facility] Work Phone: Comment on above:Expected: 05/09/2025, Expires: 05/09/2026Start: 05-09-2025 End: 06-49-4922Ktgmmcc encounter tzzbdbyjg01/13/2025 11:15 AM EDT Office Visit [facility] [address] [place] [address] Hang Toro MD [address] [place] [phone] ArrivedNOMS CWM FMComment on above:ArrivedStart: 11-29-2023 End: 39-48-3126Qwndpsu encounter ljjjytvyr07/04/2024 9:30 AM EST Office Visit [facility] [address] [place] [address] Hang Toro MD [address] [place] [phone] [facility] FMStart: 90-62-4013Algzpuqyg vaccinationInfluenza Vaccine (#1)[facility]OM HealthcareStart: 67-76-1103Xjcptmpit for malignant neoplasm of colonNOMS Healthcare Payers DatePayer CategoryPayerPolicy [id number] Cross Blue ShieldBCBS [id number] BCBS [id number] 2019- [phone] [id number] [place], [place] [id number] Health Insurance [id number] [id number] [id number] [id number] [id number] 2..[id number] Social History DateTypeDetailFacilityStart: 91-38-9359Denjrma smoking status NHISSmokes tobacco dailySEVIER VALLEY [facility]ITAL HealthcareStart: 57-03-8204Nfpivbf of tobacco useCigarette SmokerSEVIER VALLEY HOSPITAL HealthcareStart: 10-08-2023 End: 11-37-6153Vpevurbqnz smoked current (pack per day) - Urihgqeo1OSLE HealthcareStart: 73-76-1675Pxuffcr use and exposureSmokeless tobacco non-user [facility] HealthcareStart: 11-04-2023 End: 57-49-6959Usdcosv intakeCurrent drinker of alcohol (finding)[facility] Start: 10-08-2023 End: 20-34-1372Raqsbwy use panelSEVIER VALLEY HOSPITAL HealthcareStart: 47-17-1143Jebpsah Comment 6-10 cigs/ daySEVIER VALLEY HOSPITAL HealthcareStart: 70-53-0876Sgqquav Commentcaffeine intake : energy drinks; sodaNOPA HealthcareStart: 35-56-4199Nwp Assigned At BirthNot on [facility] HealthcareStart: 27-14-4499Nlultyg smoking statusSmoker (finding) [facility] HospitalTobacco smoking status NeverExecutive [facility]rology of [facility] Medical Centerexual Orientation [facility] sexMale (finding)[facility] Discharge instructions 07-16-2025 Note Date & NgziVcnoEyzaayke55-01-6569 Hospital Discharge instructions Patient Education 07/16/2025 10:40:12 Steps to Quit Smoking Steps to Quit Smoking Smoking tobacco is the leading cause of preventable . It can affect almost every organ in the body. Smoking puts you and those around you at risk for developing many serious chronic diseases. Quitting smoking can be very challenging. Do not get discouraged if you are not successful the first time. Some people need to make many attempts to quit before they achieve long-term success. Do your best to stick to your quit plan, and talk with your health care provider if you have any questionsor concerns. How do I get ready to quit? When you decide to quit smoking, create a plan to help you succeed. Before you quit: Pick a date to quit. Set a date within the next 2 weeks to give you time to prepare. Write down the reasons why you are quitting. Keep this list in places where you will see it often. Tell your family, friends, and co-workers that you are quitting. Support from people you are close to can make quitting easier. Talk with your health care provider about your options for quitting smoking. Find out what treatment options are covered by your health insurance. Identify people, places, things, and activities that make you want to smoke (triggers). Avoid them. What first steps can I take to quit smoking? Throw away all cigarettes at home, at work, and in your car. Throw away smoking accessories, such as ashtrays and lighters. Clean your car. Make sure to empty the ashtray. Clean your home, including curtains and carpets. What strategies can I use to quit smoking? Talk with your health care provider about combining strategies, such as taking medicines while you are also receiving in-person counseling. Using these two strategies together makes you more likely to succeed in quitting than if you used either strategy on its own. If you are or , talk with your health care provider about finding counseling or other support strategies to quit smoking. Do not take medicine to help you quit smoking unless your health care provider tells you to. Quit right away Quit smoking completely, instead of gradually reducing how much you smoke over a period of time. Stopping smoking right away may be more successful than gradually quitting. Attend in-person counseling to help you build problem-solving skills. You are more likely to succeed in quitting if you attend counseling sessions regularly. Even short sessions of 10 minutes can be effective. Take medicine You may take medicines to help you quit smoking. Some medicines require a prescription. You can also purchase puiz-hqg-ekxpclj medicines. Medicines may have nicotine in them to replace the nicotine in cigarettes. Medicines may: Help to stop cravings. Help to relieve withdrawal symptoms. Your health care provider may recommend: Nicotine patches, gum, or lozenges. Nicotine inhalers or sprays. Non-nicotine medicine that you take by mouth. Find resources Find resources and support systems that can help you quit smoking and remain smoke-free after you quit. These resources are most helpful when you use them often. They include: Online chats with a counselor. Telephone quitlines. Printed self-help materials. Support groups or group counseling. Text messaging programs. Mobile phone apps or applications. Use apps that can help you stick to your quit plan by providing reminders, tips, and encouragement. Examples of free services include Quit Guide from the CDC and smokefree.gov What can I do to make it easier to quit? Reach out to your family and friends for support and encouragement. Call telephone quitlines, such as 9-891-OVEE-NOW, reach out to support groups, or work with a counselor for support. Ask people who smoke to avoid smoking around you. Avoid places that trigger you to smoke, such as bars, parties, or smoke-break areas at work. Spend time with people who do not smoke. Lessen the stress in your life. Stress can be a smoking trigger for some people. To lessen stress, try: ?Exercising regularly. ?Doing deep-breathing exercises. ?Doing yoga. ?Meditating. What benefits will I see if I quit smoking? Over time, you should start to see positive results, such as: Improved sense of smell and taste. Decreased coughing and sore throat. Slower heart rate. Lower blood pressure. Clearer and healthier skin. The ability to breathe more easily. Fewer sick days. Summary Quitting smoking can be very challenging. Do not get discouraged if you are not successful the first time. Some people need to make many attempts to quit before they achieve long-term success. When you decide to quit smoking, create a plan to help you succeed. Quit smoking right away, not slowly over a period of time. Find resources and support systems that can help you quit smoking and remain smoke-free after you quit. This information is not intended to replace advice given to you by your health care provider. Make sure you discuss any questions you have with your health care provider. Document Revised: 09/04/2022 Document Reviewed: 09/04/2022 [employer] Patient Education 2023 [employer] 07/16/2025 10:34:06 Hydrocele, Adult Hydrocele, Adult A hydrocele is a collection of fluid in the loose pouch of skin that holds the testicles (scrotum).It can occur in one or both testicles. This may happen because: The amount of fluid produced in the scrotum is not absorbed by the rest of the body. Fluid from the abdomen fills the scrotum. Normally, the testicles develop in the abdomen and then drop into the scrotum before . The tube that the testicles travel through usually closes after the testicles drop. If the tube does not close, fluid from the abdomen can fill the scrotum. This is not very common in adults. What are the causes? A hydrocele may be caused by: An injury to the scrotum. An infection. Decreased blood flow to the scrotum. Twisting of a testicle (testicular torsion). A defect. A tumor or cancer of the testicle. Sometimes, the cause is not known. What are the signs or symptoms? A hydrocele feels like a water-filled balloon. It may also feel heavy. Other symptoms include: Swelling of the scrotum. The swelling may decrease when you lie down. You may also notice more swelling at night than in the morning. This is called a communicating hydrocele, in which the fluid in the scrotum goes back into the abdominal cavity when the position of the scrotum changes. Swelling of the groin. Mild discomfort in the scrotum. Pain. This can develop if the hydrocele was caused by infection or twisting. The larger the hydrocele, the more likely you are to have pain. Swelling may also cause pain. How is this diagnosed? This condition may be diagnosed based on a physical exam and your medical history. You may also have tests, including: Imaging tests, such as an ultrasound. A transillumination test. This test takes place in a dark room where a light is placed on the skin of the scrotum. Clear liquid will not impede the light and the scrotum will be illuminated. This helps a health care provider distinguish a hydrocele from a tumor. Blood or urine tests. How is this treated? Most hydroceles go away on their own. If you have no discomfort or pain, your health care provider may suggest close monitoring of your condition until the condition goes away or symptoms develop. This is called watch and wait or watchful waiting. If treatment is needed, it may include: Treating an underlying condition. This may include taking an antibiotic medicine to treat an infection. Having surgery to stop fluid from collecting in the scrotum. Having surgery to drain the fluid. Surgery may include: ?Hydrocelectomy. For this procedure, an incision is made in the scrotum to remove the fluid. ?Needle aspiration. A needle is used to drain fluid. However, the fluid buildup will come back quickly and may lead to an infection of the scrotum. This is rarely done. Follow these instructions at home: Medicines Take rjmx-woz-tbkrvei and prescription medicines only as told by your health care provider. If you were prescribed an antibiotic medicine, take it as told by your health care provider. Do notstop taking the antibiotic even if you start to feel better. General instructions Watch the hydrocele for any changes. Keep all follow-up visits. This is important. Contact a health care provider if: You notice any changes in the hydrocele. The swelling in your scrotum or groin gets worse. The hydrocele becomes red, firm, painful, or tender to the touch. You have a fever. Get help right away if you: Develop a lot of pain or your pain becomes worse. Have chills. Have a high fever. Summary A hydrocele is a collection of fluid in the loose pouch of skin that holds the testicles (scrotum). A hydrocele can cause swelling, discomfort, and pain. In adults, the cause of a hydrocele may not be known. However, it is sometimes caused by an infection or the twisting of a testicle. Hydroceles often go away on their own. If a hydrocele causes pain, treating the underlying cause may be needed to ease the pain. This information is not intended to replace advice given to you by your health care provider. Make sure you discuss any questions you have with your health care provider. Document Revised: 04/30/2022 Document Reviewed: 04/30/2022 [employer] Patient Education 2023 [employer]. Follow Up Care 07/06/2025 15:40:55 With:HERNÁN FOLEY, Gen Kulkarni, URL Address: [address] [place] [phone] When: Unknown [facility] Clinical Note 07-16-2025 Note Date & RnwuMpwhIhqxydqd22-67-0813 NotePatient Education Pulmonary Medicine Steps to Quit Smoking Smoking tobacco is the leading cause of preventable . It can affect almost every organ in the body. Smoking puts you and those around you at risk for developing many serious chronic diseases. Quitting smoking can be very challenging. Do not get discouraged if you are not successful the first time. Some people need to make many attempts to quit before they achieve long-term success. Do your best to stick to your quit plan, and talk with your health care provider if you have any questionsor concerns. How do I get ready to quit? When you decide to quit smoking, create a plan to help you succeed. Before you quit: ??? Pick a date to quit. Set a date within the next 2 weeks to give you time to prepare. ??? Write down the reasons why you are quitting. Keep this list in places where you will see it often. ??? Tell your family, friends, and co-workers that you are quitting. Support from people you are close to can make quitting easier. ??? Talk with your health care provider about your options for quitting smoking. ??? Find out what treatment options are covered by your health insurance. ??? Identify people, places, things, and activities that make you want to smoke (triggers). Avoid them. What first steps can I take to quit smoking? Throw away all cigarettes at home, at work, and in your car. ??? Throw away smoking accessories, such as ashtrays and lighters. ??? Clean your car. Make sure to empty the ashtray. ??? Clean your home, including curtains and carpets. What strategies can I use to quit smoking? Talk with your health care provider about combining strategies, such as taking medicines while you are also receiving in-person counseling. Using these two strategies together makes you more likely to succeed in quitting than if you used either strategy on its own. If you are or , talk with your health care provider about finding counseling or other support strategies to quit smoking. Do not take medicine to help you quit smoking unless your health care provider tells you to. Quit right away ??? Quit smoking completely, instead of gradually reducing how much you smoke over a period of time. Stopping smoking right away may be more successful than gradually quitting. ??? Attend in-person counseling to help you build problem-solving skills. You are more likely to succeed in quitting if you attend counseling sessions regularly. Even short sessions of 10 minutes canbe effective. Take medicine You may take medicines to help you quit smoking. Some medicines require a prescription. You can also purchase xroz-uwy-iipszxd medicines. Medicines may have nicotine in them to replace the nicotine in cigarettes. Medicines may: ??? Help to stop cravings. ??? Help to relieve withdrawal symptoms. Your health care provider may recommend: ??? Nicotine patches, gum, or lozenges. ??? Nicotine inhalers or sprays. ??? Non-nicotine medicine that you take by mouth. Find resources Find resources and support systems that can help you quit smoking and remain smoke-free after you quit. These resources are most helpful when you use them often. They include: ??? Online chats with a counselor. ??? Telephone quitlines. ??? Printed self-help materials. ??? Support groups or group counseling. ??? Text messaging programs. ??? Mobile phone apps or applications. Use apps that can help you stick to your quit plan by providing reminders, tips, and encouragement. Examples of free services include Quit Guide from the CDC and smokefree.gov What can I do to make it easier to quit? Reach out to your family and friends for support and encouragement. Call telephone quitlines, such as 1-563-SZOA-NOW, reach out to support groups, or work with a counselor for support. ??? Ask people who smoke to avoid smoking around you. ??? Avoid places that trigger you to smoke, such as bars, parties, or smoke- break areas at work. ??? Spend time with people who do not smoke. ??? Lessen the stress in your life. Stress can be a smoking trigger for some people. To lessen stress, try: ? Exercising regularly. ? Doing deep-breathing exercises. ? Doing yoga. ? Meditating. What benefits will I see if I quit smoking? Over time, you should start to see positive results, such as: ??? Improved sense of smell and taste. ??? Decreased coughing and sore throat. ??? Slower heart rate. ??? Lower blood pressure. ??? Clearer and healthier skin. ??? The ability to breathe more easily. ??? Fewer sick days. Summary ??? Quitting smoking can be very challenging. Do not get discouraged if you are not successful the first time. Some people need to make many attempts to quit before they achieve long-term success. ??? When you decide to quit smoking, create a plan to help you succeed. ??? Quit smoking right away, not s (more content not included)...[facility] History of Present illness Narrative 05-09-2025 Note Date & [id number] History of Present illness Narrative* Hang Toro MD - 05/09/2025 12:24 PM EDTAssociated Problem(s): Mass, scrotum Soft mass on back left testicle likely corresponding to hydrocele. Check US scrotum. If abnormal orworsens can refer to urology. * YORDAN AMAYA - 05/09/2025 11:15 AM EDT mass * Hang Toro MD - 05/09/2025 11:15 AM EDT Images from the original note were not included. Subjective Patient ID: Adrienne Ashley is a 44 y.o. male who presents for Groin Swelling (Mass in scrotum ). Concerned of mass in scrotum for several months. Noticed lump on back left testicle for months. Doesn't think it's increased in size since first appeared. Mild discomfort and tenderness but not painful. No change in pain with lifting or activity. Feels soft and squishy. Denies any firm lumps on testicles. Not notice anything on right side. Never had in the past. Review of Systems Constitutional: Negative for fatigue. Respiratory: Negative for cough, shortness of breath and wheezing. Cardiovascular: Negative for chest pain and palpitations. Gastrointestinal: Negative for abdominal pain, diarrhea, nausea and vomiting. Genitourinary: Negative for dysuria. Objective Physical Exam Constitutional: General: He is not in acute distress. Appearance: Normal appearance. HENT: Head: Normocephalic. Right Ear: Tympanic membrane and ear canal normal. Left Ear: Tympanic membrane and ear canal normal. Eyes: Extraocular Movements: Extraocular movements intact. Pupils: Pupils are equal, round, and reactive to light. Cardiovascular: Rate and Rhythm: Normal rate and regular rhythm. Heart sounds: No murmur heard. No friction rub. No gallop. Pulmonary: Breath sounds: Normal breath sounds. No wheezing, rhonchi or rales. Abdominal: General: Bowel sounds are normal. There is no distension. Palpations: Abdomen is soft. Tenderness: There is no abdominal tenderness. There is no guarding or rebound. Musculoskeletal: Left lower leg: No edema. Neurological: Mental Status: He is alert. Assessment/Plan Problem List Items Addressed This Visit Mass, scrotum - Primary Soft mass on back left testicle likely corresponding to hydrocele. Check US scrotum. If abnormal orworsens can refer to urology. Relevant Orders US scrotum [facility] of Present illness Narrative 11-04-2023 Note Date & [id number] History of Present illness Narrative* Hang Toro MD - 11/04/2023 10:16 AM ESTAssociated Problem(s): MDD (major depressive disorder), recurrent episode, moderate (HCC) (CMS/HCC) Continued symptoms and start wellbutrin. Warned will take 2-3 weeks to notice improvement in mood. * Hang Toro MD - 11/04/2023 10:16 AM ESTAssociated Problem(s): Generalized anxiety disorder (CMS/HCC) Continued symptoms and start wellbutrin. Warned will take 2-3 weeks to notice improvement in mood. Increase buspar for symptoms. * Hang Toro MD - 11/04/2023 9:45 AM EST Subjective Patient ID: Adreinne Ashley is a 43 y.o. male who presents for Follow-up (1 m). Follow up depression and anxiety. Tried celexa but noticed sexual side effects. Stewardson like it was blocked and couldn't finish or would lose erection too soon. Stopped medication and symptoms resolved after few days. Continues to have depression. Down, sad, and no motivation. Not want to do anything or be around others. Girlfriend off her medication due to no insurance and her depression has triggered his symptoms. Taking buspar and anxiety slightly better. Continues to have symptoms and at times severe. Nervous and worry all the time. Stressed out and overwhelmed. Thought racing and hard to clear mind. Her, irritable and snapping at others. Easily upset and overreact. Review of Systems Constitutional: Negative for fatigue. Respiratory: Negative for cough, shortness of breath and wheezing. Cardiovascular: Negative for chest pain and palpitations. Gastrointestinal: Negative for abdominal pain, diarrhea, nausea and vomiting. Genitourinary: Negative for dysuria. Objective Physical Exam Constitutional: General: He is not in acute distress. Appearance: Normal appearance. HENT: Head: Normocephalic. Right Ear: Tympanic membrane and ear canal normal. Left Ear: Tympanic membrane and ear canal normal. Eyes: Extraocular Movements: Extraocular movements intact. Pupils: Pupils are equal, round, and reactive to light. Cardiovascular: Rate and Rhythm: Normal rate and regular rhythm. Heart sounds: No murmur heard. No friction rub. No gallop. Pulmonary: Breath sounds: Normal breath sounds. No wheezing, rhonchi or rales. Abdominal: General: Bowel sounds are normal. There is no distension. Palpations: Abdomen is soft. Tenderness: There is no abdominal tenderness. There is no guarding or rebound. Musculoskeletal: Left lower leg: No edema. Neurological: Mental Status: He is alert. Assessment/Plan Problem List Items Addressed This Visit Generalized anxiety disorder (CMS/HCC) Continued symptoms and start wellbutrin. Warned will take 2-3 weeks to notice improvement in mood. Increase buspar for symptoms. Relevant Medications busPIRone (Buspar) 15 MG tablet MDD (major depressive disorder), recurrent episode, moderate (HCC) (CMS/HCC) - Primary Continued symptoms and start wellbutrin. Warned will take 2-3 weeks to notice improvement in mood. Relevant Medications buPROPion XL (Wellbutrin XL) 150 MG 24 hr tablet [facility] Plan note Note Date & TypeNoteFacilityEvaluation + Plan note Future Appointments Appointment Date:07/15/2026 10:15:00 AM Scheduled Provider:Gen HORTA MD Location:[facility] Appointment Type:URO Office Visit [facility] Evaluation note Note Date & TypeNoteFacilityEvaluation note* Diagnosis Generalized anxiety disorder (CMS/HCC) Generalized anxiety disorder documented in this encounter [facility] Evaluation note Note Date & TypeNoteFacilityEvaluation note* Diagnosis MDD (major depressive disorder), recurrent episode, moderate (HCC) (CMS/HCC)- Primary Generalized anxiety disorder (CMS/HCC) Generalized anxiety disorder documented in this encounter [facility] Evaluation note Note Date & TypeNoteFacilityEvaluation note* Diagnosis MDD (major depressive disorder), recurrent episode, moderate (HCC)- Primary Generalized anxiety disorder Generalized anxiety disorder MDD (major depressive disorder), recurrent episode, moderate (HCC)- Primary Generalized anxiety disorder Generalized anxiety disorder MDD (major depressive disorder), recurrent episode, moderate (HCC)- Primary Generalized anxiety disorder Generalized anxiety disorder Mass, scrotum- Primary Other specified disorder of male genital organs documented in this encounter [facility] Hospital course Narrative Note Date & TypeNoteFacilityHospital course Narrative No data available for this section [facility] Progress note Note Date & TypeNoteFacilityProgress note No data available for this section [facility] Summary Purpose Family History No Family History Records FoundNo Family History Records Found No data available for this section No Family History Records Found Advance Directives No Advanced Directives Records FoundNo Advanced Directives Records FoundNo Advanced Directives Records Found Additional Source Comments (unrecognized sect ion and content) No Status Records FoundNo Status Records FoundNo Status Records Found INFORMATION SOURCE (unrecogn ized section and content) DATE CREATED AUTHOR 06/03/2019 [facility] DATE CREATED AUTHOR AUTHOR'S ORGANIZ ATION 05/11/2025 [facility] EPIC DATE CREATED AUTHOR AUTHOR'S ORGANIZ ATION 07/18/2025 [facility] Reason for Visit (unrecogniz ed section and content) ReasonCommentsMed Change RequestReasonCommentsFollow-up1 mReasonCommentsGroin SwellingMass in scrotum Care Teams (unrecognized sec tion and content) Team MemberRelationshipSpecialtyStart DateEnd Date Hang Toro MD [address] [place] [phone] PCP - GeneralFamily Medicine10/28/23Team MemberRelationshipSpecialtyStart DateEnd Date Hang Toro MD [address] [place] [address] PCP - GeneralFamily Medicine10/28/23Team MemberRelationshipSpecialtyStart DateEnd Date Hang Toro MD [address] [place] [address] PCP - GeneralFamily Medicine10/28/23 Hang Toro MD [address] [place] [address] PCP - [place] [facility]11/26/23Team MemberRelationshipSpecialtyStart DateEnd Date Hang Toro MD [address] [place] [address] PCP - GeneralFamily Medicine10/28/23 Hang Toro MD [address] [place] [address] ANH Peralta11/26/23 FOR RECORDS PERTAINING TO PATIENTS WHO ARE OR HAVE BEEN ENROLLED IN A CHEMICAL DEPENDENCY/SUBSTANCEABUSE PROGRAM, SOME INFORMATION MAY BE OMITTED. This clinical summary was aggregated from multiple sources. Caution should be exercised in using it in the provision of clinical care. This summary normalizes information from multiple sources, and as a consequence, information in this document may materially change the coding, format and clinical context of patient data. In addition, data may be omitted in some cases. CLINICAL DECISIONS SHOULD BE BASED ON THE PRIMARY CLINICAL RECORDS. [facility] [employer] [facility]. provides no warranty or guarantee of the accuracy or completeness of information in this document.
--- OUTSIDE RECORDS SUMMARY | 2025-08-05 08:39 | XMS_ITS | Clinical Summary ---
Author Organization [facility] Address [address] [place] [address] Care Team Providers Care Provider Relations Advocate Name Role Phone Hang Naqvi MD Primary Care Provider [phone] Hang Naqvi MD Unavailable Allergies No known active allergies Medications No known medications Active Problems ProblemNoted DateDiagnosed DateMass, szgeefk3105/09/2025 Assessment & Plan (05/09/2025 12:24 PM EDT): Soft mass on back left testicle likely corresponding to hydrocele. Check US scrotum. If abnormal orworsens can refer to urology. Generalized anxiety sbdxsqce79/12/2024 Assessment & Plan (11/29/2023 10:04 AM EST): Symptoms controlled with buspar but feels like need extra dose at times. Increase to TID. Assessment & Plan (11/04/2023 10:16 AM EST): Continued symptoms and start wellbutrin. Warned will take 2-3 weeks to notice improvement in mood. Increase buspar for symptoms. Assessment & Plan (10/08/2023 10:11 AM EST): Severe symptoms and not functioning well. Start celexa and warned will take 2-3 weeks to notice improvement in mood. Start buspar for symptoms. Chronic low back pain10/08/2023MDD (major depressive disorder), recurrent episode, fgqmwocl88/12/2024 Assessment & Plan (11/29/2023 10:03 AM EST): Occasional symptoms but tolerable without medication and monitor. Assessment & Plan (11/04/2023 10:16 AM EST): Continued symptoms and start wellbutrin. Warned will take 2-3 weeks to notice improvement in mood. Assessment & Plan (10/08/2023 10:12 AM EST): Severe symptoms and not functioning well. Start celexa and warned will take 2-3 weeks to notice improvement in mood. Rlkkaih7010/08/2023Left knee pain10/08/2023 Resolved Problems ProblemNoted DateDiagnosed DateResolved YkedFxfmcrx90Left otitis media with spontaneous rupture of /04/2024Hematuria, ljhelizsnqy45 Encounters DateTypeDepartmentCare SvtjRwwqwaogjzn00/13/2025 11:15 AM EDTOffice Visit [facility] [place] [facility] [address] [place] [address] Hang Naqvi MD Mass, scrotum (Primary Dx)05/09/2025amboo flowsheet [facility] [address] [place] [phone] Hang Naqvi MD from Last 3 Months Family History Medical HistoryRelationNameCommentsAlcohol abuseFatheretoh abuseNo Known ProblemsMotherRelationNameStatusCommentsFatherDeceasedMotherAlive Social History Tobacco UseTypesPacks/DayYears UsedDateSmoking Tobacco: Every WrsBhmosprjib403.9 Started: 09/28/2000Smokeless Tobacco: Never Tobacco Cessation:Ready to Q uit: No; Counseling Given: Not Answered Comments:6-10 cigs/ day Alcohol UseStandard Drinks/WeekCommentsYes0 (1 standard drink = 0.6 oz pure alcohol)caffeine intake : energy drinks; sodaPHQ-2AnswerDate RecordedPatient Health Questionnaire-2 Biatj605Sex and Gender InformationValueDate RecordedSex Assigned at BirthNot on fileLegal JkiWnvy5312/09/2022 6:39 PM EDT Gender IdentityNot on fileSexual OrientationNot on file Last Filed Vital Signs Vital SignReadingTime TakenCommentsBlood Uifbbezy421/5808 11:30 AM EDT Navys4376 11:30 AM JVRMnwtiloqfyy25.3 ??C (97.3 ??F)05/09/2025 11:30 AM EDTRespiratory Slnv6679 11:30 AM EDTOxygen Blxfrujjaw51%05/09/2025 11:30 AM EDTInhaled Oxygen Concentration--Xqlfdk77.8 kg (176 lb)05/09/2025 11:30 AM ZTQEcbavv101.3 cm (5' 11 )05/09/2025 11:30 AM EDTBody Mass Index24.55005/09/2025 11:30 AM EDT Plan of Treatment Health MaintenanceDue DateLast DoneCommentsCT Acmsofcjwtxe1979Colonoscopy 1979Colorectal Cancer Zeehhxfrp1979FIT-DNA1979FIT1979 FOBT1980 7441Odztyuqpilmht1979Pneumococcal Vaccine: Pediatrics (0 to 5 Years) and At-Risk Patients (6 to 64 Years) (1 of 2 - PCV)1998COVID-19 Vaccine (1 - season)2025Influenza Vaccine (#1)[address] [place] [id number] Care Teams Team MemberRelationshipSpecialtyStart DateEnd Date Hang Naqvi MD PCP - [facility]10/28/23 Hang Naqvi MD [address] [place] [address] [facility]11/26/23
--- OUTSIDE RECORDS SUMMARY | 2025-08-05 08:39 | XMS_ITS | Clinical Summary ---
Author Organization [facility] Address [id number] [place] [address] Care Team Providers Care Concrete Batcher Name Role Phone Hang Naqvi MD Primary Care Provider Allergies No known active allergies Medications No known medications Social History Tobacco UseTypesPacks/DayYears UsedDateSmoking Tobacco: Every DaySmokeless Tobacco: NeverAlcohol UseStandard Drinks/WeekCommentsNever0 (1 standard drink = 0.6 oz pure alcohol)AUDIT-CAnswerDate RecordedQ1: How often do you have a drink containing alcohol?Never1Average Number of DrinksNot on file11/11/2020 Frequency of Binge DrinkingNot on file1ChildcareAnswerDate Recorded EimmjpzlrGtbdowr59/15/2021mploymentAnswerDate RecordedEmploymentUnknown 1Purpose - LifeAnswerDate RecordedPurpose and direction in lifeUnknown 11/11/2020ex and Gender InformationValueDate RecordedSex Assigned at BirthNot on fileLegal CbcKdxr4905/02/2015 11:53 AM EDTGender IdentityNot on fileSexual OrientationNot on file Last Filed Vital Signs Vital SignReadingTime TakenCommentsBlood Pwkjasyc713/76011/11/2020 11:01 AM EST Cfuou850711/11/2020 11:10 AM BEKGqaeltujqqm02.6 ??C (97.9 ??F)11/11/2020 7:29 AM ESTRespiratory Zfxh922011/11/2020 11:10 AM ESTOxygen Piovbvuizw66%11/11/2020 11:09 AM ESTInhaled Oxygen Concentration--Josssf60.4 kg (175 lb)11/11/2020 7:29 AM EST Neptag179.9 cm (6')11/11/2020 7:29 AM ESTBody Mass Index23.7311/11/2020 7:29 AM EST Plan of Treatment Health MaintenanceDue DateLast DoneCommentsDepression Cejueobum79/24/1991Tobacco Aldomuynr35/24/1991Adult BMI Scemlpnxb90/24/1997DTaP,Tdap and Td Vaccines (1 - Tdap)1998Influenza Jilbsmd2605/28/2025 Medical Devices Not on file Insurance * Guarantor: Farooq GarzaAccount TypeRelation to PatientDate of PhoneBilling AddressPersonal/FobnsgBnmh1980 [address] [address] Care Teams Team MemberRelationshipSpecialtyStart DateEnd Date Hang Naqvi MD PCP - GeneralFamily Medicine11/11/20
--- NOTE | 2025-08-05 08:41 | CT_ITS ---
[address] [address] Patient Name: ADRIENNE ASHLEY MRN: [id number] date: 1980 Sex: M Assigned Patient Location: ER Current Patient Location: Accession/Order Number: [id number] Exam Date: 08/05/2025 08:52 Report Date: 08/05/2025 09:40 At the request of: CHIQUIS WOODARD DO Procedure: CT angio chest CT angio chest 08/05/2025 9:05 AM SIGN AND SYMPTOMS: chest pain, SOB, heavy tobacco use CONTRAST: 100 mL of intravenous Omnipaque 350 TECHNIQUE: Multidetector CT axial slices of the chest were obtained with IV contrast. Multiplanar reformats were performed and viewed on a separate workstation and reviewed to further define anatomy and possible pathology. CT was performed with one or more of the following dose reduction techniques: Automated exposure control, adjustment of the mA and/or kV according to patient size, or use of iterative reconstruction technique. COMPARISON: None. FINDINGS: Lower neck: Thyroid gland within normal limits, no supraclavicle adenopathy. Vessels: Within normal limits. There is no evidence of pulmonary embolism. Mediastinum and Miranda: Within normal limits. Heart: Normal size. No pericardial effusion. Airways: Within normal limits. Lungs: Mild diffuse emphysematous changes are noted. There is a 3 mm pleural-based nodule medially in the right upper lobe adjacent to the ascending aorta. There is a 3 mm calcified granuloma in the left lower lobe. Pleura: Within normal limits. Chest Wall: Within normal limits. Upper Abdomen: Within normal limits. Bones: Posttraumatic and postoperative changes are present in the upper lumbar spine. Degenerative changes are noted in the thoracic spine. CT/CT angio chest IMPRESSION: There is no evidence of pulmonary embolism. No acute cardiopulmonary pathology. Mild emphysematous changes are noted. Impression dictated by: Alex Dunn M.D. 08/05/2025 9:40 AM Dictation Location: [place] [address] Electronically authenticated by: [id number] Y Date: 08/05/2025 09:40
[2025-08-05 08:45] LABS: Hematocrit 43.0 % (42.0-54.0); Hemoglobin 14.7 g/dL (14.0-18.0); Immature Granulocytes Abs Auto 0.02 10^3/uL (0.00-0.03); Immature Granulocytes Pct Auto 0.2 % (0.0-0.5); Lymphocytes Absolute Auto 2.3 10^3/uL (1.2-3.8); Mean Corpuscular HGB Conc 34.2 g/dL (29.9-35.2); Mean Corpuscular Hemoglobin 30.9 pg (25.9-34.0); Mean Corpuscular Volume 90.3 fL (80.0-94.0); Platelet Count 316 10^3/uL (150-450); Red Blood Count 4.76 10^6/uL (4.70-6.10); White Blood Count 9.0 10^3/uL (4.0-11.0)
[2025-08-05 09:02] LABS: Alanine Aminotransferase 42 U/L (16-63); Albumin Globulin Ratio 1.2; Albumin Level 3.7 g/dL (3.4-5.0); Alkaline Phosphatase 120 U/L (46-116); Anion Gap 15.9; Aspartate Amino Transferase 24 U/L (15-37); Blood Urea Nitrogen 13.0 mg/dL (7.0-18.0); Calcium 8.7 mg/dL (8.5-10.1); Carbon Dioxide 25.8 mmol/L (21.0-32.0); Chloride 103 mmol/L (98-107); Estimated GFR (African America >60 (>=60 mL/min/1.73m^2); Estimated GFR (Non-African Ame >60 (>=60 mL/min/1.73m^2); Globulin 3.0 g/dL; Glucose 116 mg/dL (74-106); Magnesium 2.2 mg/dL (1.8-2.4); Potassium 3.7 mmol/L (3.5-5.1); Sodium 141 mmol/L (136-145); Total Protein 6.7 g/dL (6.4-8.2)
[2025-08-05] MEDS: ASPIRIN 81 MG TAB.CHEW 324 MG PO (09:46)
--- NOTE | 2025-08-05 10:03 | ED.GENADUL1 ---
HPI HPI - General Adult General Chief complaint: Chest Pain Stated complaint: CHEST AND BACK PAIN Time Seen by Provider: 08/05/25 08:19 Source: patient and family Mode of arrival: walk-in Limitations: no limitations History of Present Illness HPI narrative: Patient is a 45-year-old male presenting to the emergency department for evaluation of chest pain. Patient states that he had an episode of chest pain earlier this morning approximately 3 hours prior to arrival. He states he was sitting at his desk when he had left-sided chest pain that radiated to his back. He felt dizzy and lightheaded and nauseous as well. The symptoms resolved after about 7 minutes. Then, he started walking to his truck leaving work, and then started experiencing the chest pain though less severe this time. He had 2 more episodes of this before reporting to the ED. He denies history of chronic medical conditions including previous AK or CAD. He denies any fevers or chills. No abdominal pain, constipation, melena, or any other concerning symptoms. He is currently asymptomatic. He does smoke 2 packs of cigarettes daily for over 10 years and 5 Monster energy drinks daily. Related Data Previous Rx's ?Medication ?Instructions ?Recorded aspirin 81 mg tablet 81 mg PO DAILY #30 tabs 08/05/25 Allergies Allergy/AdvReac Type Severity Reaction Status Date / Time No Known Drug Allergies Allergy Verified 08/05/25 08:21 Review of Systems ROS Status of ROS 10 or more systems reviewed and unremarkable except as noted in history and below [facility] Social History Smoking status: Current every day smoker Little interest or pleasure in doing things: not at all Feeling down, depressed, or hopeless: not at all Exam Narrative Exam Narrative: CONSTITUTIONAL: Well-appearing, answering questions and following commands appropriately SKIN: Was warm and dry. EYES: No conjunctival pallor. EARS, NOSE, THROAT: No JVD. RESPIRATORY: Clear to auscultation bilaterally, no wheezes, crackles, or stridor, no use of accessory muscles CARDIOVASCULAR: Normal rate and regular rhythm. There is no S3, S4, murmur, rub. Radial and dorsalis pedis pulses are 2+ and symmetrical. GASTROINTESTINAL: Abdomen was soft, non-tender, and non-distended. There is no guarding or rebound tenderness MUSCULOSKELETAL: There was no lower extremity edema, erythema, or tenderness. NEUROLOGIC: Patient is awake and alert. Facies were symmetrical. Constitutional Vital Signs, click to edit/add: Last Vital Signs Temp 97.7 F 08/05/25 08:40 Pulse 80 08/05/25 08:21 Resp 18 08/05/25 08:21 BP 117/94 H 08/05/25 08:21 Pulse Ox 98 08/05/25 08:21 O2 Del Method Room Air 08/05/25 08:21 Course Vital Signs Vital signs: Vital Signs Pulse Rate 80 08/05/25 08:21 Respiratory Rate 18 08/05/25 08:21 Blood Pressure 117/94 H 08/05/25 08:21 Pulse Oximetry 98 08/05/25 08:21 Oxygen Delivery Method Room Air 08/05/25 08:21 Temperature 97.7 F 08/05/25 08:40 Pulse Rate 80 08/05/25 08:21 Respiratory Rate 18 08/05/25 08:21 Blood Pressure 117/94 H 08/05/25 08:21 Pulse Oximetry 98 08/05/25 08:21 Oxygen Delivery Method Room Air 08/05/25 08:21 Medical Decision Making [facility] Narrative Medical decision making narrative: Patient is a 45-year-old male presenting to the emergency department for multiple episodes of chest pain beginning a few hours prior to arrival. His vital signs on arrival are within normal limits. He is afebrile and hemodynamically stable. He has a normal physical examination and is currently asymptomatic without any active chest pain. Differential diagnosis includes ACS, arrhythmia, pneumothorax, PE, pneumonia, or other electrolyte/metabolic derangement. IV was established and laboratory studies were obtained. He was given 325mg aspirin. Laboratory studies were unremarkable. No significant electrolyte or metabolic derangement. No evidence of acute kidney injury. No anemia, leukocytosis, or thrombocytopenia. No transaminitis or hyperbilirubinemia. Initial and repeat 2-hour troponin were 12 and 23 respectively. CTA of the chest independently reviewed and interpreted by myself and radiology demonstrated no acute cardiopulmonary process. 12 Lead EKG: Normal sinus rhythm at a rate of 75. Left axis deviation with prolonged QRS duration of 134, consistent with left anterior fascicular block. RSR prime configurations in lead V1 and V2, consistent with RBBB. No ST segment elevations. VA interval at the high end of normal at 200 ms. No prior EKG for comparison. Final impression: Normal sinus rhythm with bifascicular block. No evidence of STEMI. Given the patient's symptoms plus bifascicular block, I did consult and discuss the patient with scale tester Dr. Chapa. He recommneded repeat troponin (which I did order and result is reported above). He recommends outpatient follow-up in his clinic. He also recommended 81 mg daily aspirin. I do believe the patient is stable for discharge. They were instructed to follow up with Dr. Bird as soon as possible. Return precautions were given including any new or worsening symptoms, including syncope, chest pain, palpitation, or any other concerning symptoms. They were given a prescription for aspirin 81 mg daily. Patient understands and agrees to the plan. FINAL IMPRESSION: #Acute chest pain #Acute pre-syncope #Age-indeterminate bifascicular block DISPOSITION: Discharged home CONDITION: Good Medical Records Medical records reviewed: Yes I reviewed the patient's medical records Lab Data Lab results reviewed: Yes I reviewed the patient's lab results Labs: Lab Results 08/05/25 08/05/25 Range/Units 08:32 10:05 WBC 9.0 (4.0-11.0) 10^3/uL RBC 4.76 (4.70-6.10) 10^6/uL Hgb 14.7 (14.0-18.0) g/dL Hct 43.0 (42.0-54.0) % MCV 90.3 (80.0-94.0) fL MCH 30.9 (25.9-34.0) pg MCHC 34.2 (29.9-35.2) g/dL RDW 13.7 (11.0-15.0) % Plt Count 316 (150-450) 10^3/uL MPV 9.3 L (9.5-13.5) fL Neut % (Auto) 63.2 (43.0-75.0) % Lymph % (Auto) 25.4 (20.5-60.0) % [place] % (Auto) 6.5 (1.7-12.0) % Eos % (Auto) 3.9 (0.9-7.0) % Baso % (Auto) 0.8 (0.2-2.0) % Neut # (Auto) 5.7 (1.4-6.5) 10^3/uL Lymph # (Auto) 2.3 (1.2-3.8) 10^3/uL [place] # (Auto) 0.6 (0.3-0.8) 10^3/uL Eos # (Auto) 0.4 (0.0-0.7) 10^3/uL Baso # (Auto) 0.1 (0.0-0.1) 10^3/uL Abs Immat Gran (auto) 0.02 (0.00-0.03) 10^3/uL Imm/Tot Granulo (auto) 0.2 (0.0-0.5) % D-Dimer <0.19 (<=0.59) mg/L FEU Sodium 141 (136-145) mmol/L Potassium 3.7 (3.5-5.1) mmol/L Chloride 103 (98-107) mmol/L Carbon Dioxide 25.8 (21.0-32.0) mmol/L Anion Gap 15.9 BUN 13.0 (7.0-18.0) mg/dL Creatinine 0.95 (0.70-1.30) mg/dL Est GFR ( Amer) >60 (>=60 mL/min/1.73m^2) Est GFR (Non-Af Amer) >60 (>=60 mL/min/1.73m^2) BUN/Creatinine Ratio 13.7 Glucose 116 H (74-106) mg/dL Calcium 8.7 (8.5-10.1) mg/dL Magnesium 2.2 (1.8-2.4) mg/dL Total Bilirubin 0.5 (0.2-1.0) mg/dL AST 24 (15-37) U/L ALT 42 (16-63) U/L Alkaline Phosphatase 120 H (46-116) U/L Troponin I High Sens 12.2 23.4 (4.0-76.1) pg/mL Total Protein 6.7 (6.4-8.2) g/dL Albumin 3.7 (3.4-5.0) g/dL Globulin 3.0 g/dL Albumin/Globulin Ratio 1.[address] scan - chest: Attestation: I personally reviewed and interpreted this imaging study as follows: Radiologist's impression: ITS Impressions Chest CTA 11/09/25 08:41 IMPRESSION: There is no evidence of pulmonary embolism. No acute cardiopulmonary pathology. Mild emphysematous changes are noted. Impression dictated by: Alex Dunn M.D. 08/05/2025 9:40 AM Dictation Location: [place] Electronically authenticated by: [id number] Y Date: 08/05/2025 09:40 ECG Data Attestation: I personally reviewed and interpreted this ECG as follows: Discharge Plan Discharge Chief Complaint: Chest Pain Clinical Impression: Chest pain, Pre-syncope, Bifascicular block Patient Disposition: Home, Self-Care Time of Disposition Decision: 10:04 Condition: Good Mode of Transportation: Private Vehicle Prescriptions / Home Meds: New aspirin 81 mg tablet 81 mg PO DAILY Qty: 30 0RF Print Language: Telugu Instructions: Chest Pain (ED) Referrals: Chad Chapa [Other, Cardiology] - As soon as possible Clinical Impression: Bifascicular block
== END 2025-08-05 11:09 | disposition home or self-care (01) ==
PROVIDERS: Emergency Provider Student in an Organized Health Care Education/Training Program; PCP Family Medicine
DX: R07.89 Other chest pain (principal); R42 Dizziness and giddiness; R11.0 Nausea; R55 Syncope and collapse; I45.2 Bifascicular block
CPT/HCPCS: 36415; 71275; 80053; 83735; 84484; 85025; 85378; 93005; 99285; Q9967

== ENCOUNTER 2025-09-12 08:37 | Outpatient (OUT) | payer BC, SELFPAY ==
--- OUTSIDE RECORDS SUMMARY | 2025-09-04 10:49 | XMS_ITS | Encounter Summary ---
Author Organization [facility] Address [address] [place] [address] Phone Care Team Providers Care Metal Solderer Name Role Phone Hang Naqvi MD Primary Care Provider + Reason for Referral * Cardiac Stress Testing (Routine) - AuthorizedSpecialtyDiagnoses / Procedures Referred By ContactReferred To ContactCardiology Diagnoses Shortness of breath Bifascicular block Procedures Stress Test IA CV STRS TST XERS&/OR RX CONT ECG TRCG ONLY Ignacio Chapa MD [address] [facility] 2, [address] [address] Phone: tel: fax: Referral IDStatusReasonStart DateExpiration DateVisits RequestedVisits [id number]/1/202512/1/202611 Reason for Visit * Cardiac Stress Testing (Routine) - AuthorizedSpecialtyDiagnoses / Procedures Referred By ContactReferred To ContactCardiology Diagnoses Shortness of breath Bifascicular block Procedures Stress Test IA CV STRS TST XERS&/OR RX CONT ECG TRCG ONLY Ignacio Chapa MD [address] [facility], [address] [address] Phone: tel: fax: Referral IDStatusReasonStart DateExpiration DateVisits RequestedVisits [id number]/1/202512/1/202611 Encounter Details DateTypeDepartmentCare Team (Latest Contact Info)Fnkjdfmwhdi74/09/2025 10:49 AM EST - 09/04/2025 11:59 PM ESTHospital Encounter at [facility] [address] [place] [phone] Shortness of breath; Bifascicular block Discharge Disposition: Home Social History Tobacco UseTypesPacks/DayYears UsedDateSmoking Tobacco: Every DayCigarettes Alcohol UseStandard Drinks/WeekCommentsNever0 (1 standard drink = 0.6 oz pure alcohol)Sex and Gender InformationValueDate RecordedSex Assigned at BirthNot on fileLegal RplJzbv09/10/2025 2:18 PM ESTGender IdentityNot on fileSexual OrientationNot on filedocumented as of this encounter Last Filed Vital Signs Vital SignReadingTime TakenCommentsBlood Acojpwzu962/ 11:11 AM EST Bnsug280709/04/2025 11:11 AM ESTTemperature--Respiratory Rate--Oxygen Saturation-- Inhaled Oxygen Concentration--Weight--Height--Body Mass Index--documented in this encounter Functional Status * BPAnswerDate of UipcwzmzbqHhqjyu555 11:11 AM Pam Snell RN * PulseAnswerDate of FcbdqdecuwQtkhvx5020/09/2025 11:11 AM Pam Snell RN documented as of this encounter Medications at Time of Discharge MedicationSigDispense QuantityRefillsLast FilledStart DateEnd Date aspirin 81 mg EC tablet Take 1 tablet (81 mg) by mouth once daily.documented as of this encounter Plan of Treatment DateTypeDepartmentCare Team (Latest Contact Info)Iochvwlhfyr59/18/2025 9:45 AM ESTAppointment at [facility] [address] [place] [phone] 12/20/2025 2:30 PM EDTOffice Visit at [facility] [facility] [address] [place] [address] [phone] Ignacio Chapa MD [address] [place] [address] 2, [address] [place] [address] documented as of this encounter Procedures Procedure NamePriorityDate/TimeAssociated DiagnosisCommentsSTRESS TEST ONLY, OQBGIVVOAysjfqm43/09/2025 11:35 AM EST Shortness of breath Bifascicular block documented in this encounter Results * STRESS TEST ONLY, EXERCISE (09/04/2025 11:35 AM EST)Specimen (Source) Anatomical Location / LateralityCollection Method / VolumeCollection Time Received Time09/04/2025 11:46 AM EST Impressions SYNGO - 09/04/2025 3:38 PM EST Summary: 1. Normal exercise stress test without diagnostic ST-T changes for ischemia. 2. No provoked chest pain or arrhythmia. 3. Appropriate hemodynamic response to exercise. 4. Fair exercise tolerance. 5. Normal heart recovery phase. 6. Patient exercised for a total of 8 minutes achieving workload of 10.1 METS and 86% of maximum predicted heart rate. Narrative SYNGO - 09/04/2025 3:38 PM EST ?[facility] [address] [place] [address], [address], [place] [phone] ? Exercise Stress Test Patient Name: ?ADRIENNE ASHLEY ?Ordering Provider: ? [id number] IGNACIO ? SAMMI Study Date: ?09/04/2025 ?Reading Physician: ? [id number] Ignacio ? Sammi FOLEY MRN/PID: ? [id number] ? Supervising Physician: [id number] Gibsoncruzpedro ? Sammi FOLEY Accession#: ?[id number] ? Fellow: Date of /Age: 9 1980 / 45 years Fellow: Gender: ?M ?Nurse: ? Pam Galaviz Admission Status: ? Implant Polisher: ? NA Height: ?180.34 cm ?Technologist: Weight: ?84.82 kg ? Additional Staff: BSA: ? 2.05 m2 ? BMI: ? 26.08 kg/m2 ?Patient Location: Study Type: ?STRESS TEST ONLY Diagnosis/ICD: Bifascicular block-I45.2; Shortness of breath-R06.02 Indication: ?Dyspnea CPT Codes: ? Stress Test Interpretation-32398; Stress Test Supervision-46056 Falls Risk: Low: Patient has low risk for sustaining a fall; environmental safety interventions in place. Study Details: Correct procedure and correct patient verified verbally. Patient History: Allergies: None. Patient Performance: The patient exercised to stage III on a Kin protocol for 8 minutes and 00 seconds, achieving 10.10 METS. The peak heart rate achieved was 150 bpm, which was 86 % of the age predicted target heart rate of 174 bpm. The resting blood pressure was 126/86 mmHg with a heart rate of67 bpm. The standing blood pressure was 132/86 mmHg with a heart rate of 82 bpm. The patient's funct ional capacity was below average. The patient developed fatigue during the stress exam. The symptoms resolved with rest. The blood pressure response was normal. The test was terminated due to: fatigue. Sinus tachycardia. Double Product (HR x BP): 261. Baseline ECG: Resting ECG showed normal sinus rhythm with right bundle branch block. Normal sinus rhythm with right bundle branch block. Stress Stage Data: + +---+------+-------+ ? HR Sys BP Deleon BP + +---+------+-------+ Baseline Resting 67 126 ?? 86 ? + +---+------+-------+ Baseline Standing 82 132 ?? 86 ? + +---+------+-------+ Stage I ? 106 142 ?? 78 ? + +---+------+-------+ Stage II ? 133 162 ?? 86 ? + +---+------+-------+ Stage III ? 150 174 ?? 92 ? + +---+------+-------+ Recovery ECG: The heart rate recovery was normal. + +---+------+-------+ ? HR Sys BP Deleon BP + +---+------+-------+ Recovery I ?? 144 176 ?? 88 ? + +---+------+-------+ Recovery II 129 172 ?? 88 ? + +---+------+-------+ Recovery III 98 156 ?? 86 ? + +---+------+-------+ Recovery IV 97 132 ?? 84 ? + +---+------+-------+ Summary: 1. Normal exercise stress test without diagnostic ST-T changes for ischemia. 2. No provoked chest pain or arrhythmia. 3. Appropriate hemodynamic response to exercise. 4. Fair exercise tolerance. 5. Normal heart recovery phase. 6. Patient exercised for a total of 8 minutes achieving workload of 10.1 METS and 86% of maximum predicted heart rate. [id number] Ignacio Chapa MD Electronically signed on 09/04/2025 at 3:38:37 PM Final Procedure Note Ignacio Chapa MD - 09/04/[address] [facility] [address], [address] [place] [address] Exercise Stress Test Patient Name: ADRIENNE ASHLEY Ordering Provider: [id number] ACKERMANLORENPatti Study Date: 09/04/2025 Reading Physician: [id number] Caraballo MRN/PID: [id number] Supervising Physician: [id number] Caraballo Fellow: Date of /Age: 9 1980 / years Fellow: Gender: M Nurse: Whitney OLMEDO Admission Status: Implant Polisher: NA Height: 180.34 cm Technologist: Weight: 84.82 kg Additional Staff: BSA: 2.05 m2 BMI: 26.08 kg/m2 Patient Location: Study Type: STRESS TEST ONLY Diagnosis/ICD: Bifascicular block-I45.2; Shortness of breath-R06.02 Indication: Dyspnea CPT Codes: Stress Test Interpretation-21097; Stress TestSupervision-74255 Falls Risk: Low: Patient has low risk for sustaining a fall; environmentalsafety interventions in place. Study Details: Correct procedure and correct patient verified verbally. Patient History: Allergies: None. Patient Performance: The patient exercised to stage III on a Bruceprotocol for 8 minutes and 00 seconds, achieving 10.10 METS. The peakheart rate achieved was 150 bpm, which was 86 % of the age predictedtarget heart rate of 174 bpm. The resting blood pressure was 126/86 mmHgwith a heart rate of 67 bpm. The standing blood pressure was 132/86 mmHgwith a heart rate of 82 bpm. The patient's functional capacity was belowaverage. The patient developed fatigue during the stress exam. Thesymptoms resolved with rest. The blood pressure response was normal. Thetest was terminated due to: fatigue. Sinus tachycardia. Double Product (HR x BP): 261. Baseline ECG: Resting ECG showed normal sinus rhythm with right bundlebranch block. Normal sinus rhythm with right bundle branch block. Stress Stage Data: + +---+------+-------+ HR Sys BP Deleon BP + +---+------+-------+ Baseline Resting 67 126 86 + +---+------+-------+ Baseline Standing 82 132 86 + +---+------+-------+ Stage I 106 142 78 + +---+------+-------+ Stage II 133 162 86 + +---+------+-------+ Stage III 150 174 92 + +---+------+-------+ Recovery ECG: The heart rate recovery was normal. + +---+------+-------+ HR Sys BP Deleon BP + +---+------+-------+ Recovery I 144 176 88 + +---+------+-------+ Recovery II 129 172 88 + +---+------+-------+ Recovery III 98 156 86 + +---+------+-------+ Recovery IV 97 132 84 + +---+------+-------+ Summary: 1. Normal exercise stress test without diagnostic ST-T changes forischemia. 2. No provoked chest pain or arrhythmia. 3. Appropriate hemodynamic response to exercise. 4. Fair exercise tolerance. 5. Normal heart recovery phase. 6. Patient exercised for a total of 8 minutes achieving workload of 10.1METS and 86% of maximum predicted heart rate. [id number] Ignacio Chapa MD Electronically signed on 09/04/2025 at 3:38:37 PM Final IMPRESSION: Summary: 1. Normal exercise stress test without diagnostic ST-T changes forischemia. 2. No provoked chest pain or arrhythmia. 3. Appropriate hemodynamic response to exercise. 4. Fair exercise tolerance. 5. Normal heart recovery phase. 6. Patient exercised for a total of 8 minutes achieving workload of 10.1METS and 86% of maximum predicted heart rate. Authorizing ProviderResult TypeResult StatusModavid Chapa [facility] [place] STRESS PROCEDURESFinal ResultPerforming OrganizationAddressCity/State/ZIP CodePhone Number SYNGO documented in this encounter Visit Diagnoses Diagnosis Shortness of breath Bifascicular block Other bilateral bundle branch block documented in this encounter Care Teams Team MemberRelationshipSpecialtyStart DateEnd Date Hang Naqvi MD [address] [place] [address] PCP - GeneralFamily Tvgsierf95/1/25documented as of this encounter
--- OUTSIDE RECORDS SUMMARY | 2025-09-12 08:42 | XMS_ITS | Encounter Summary ---
Author Organization [facility] Address [address] [place] [address] Phone Care Team Providers Care Field Engineer Name Role Phone Hang aNqvi MD Primary Care Provider + Encounter Details DateTypeDepartmentCare Team (Latest Contact Info)Kgxtzhxnztz51/09/2025Travel Social History Tobacco UseTypesPacks/DayYears UsedDateSmoking Tobacco: Every DayCigarettes Alcohol UseStandard Drinks/WeekCommentsNever0 (1 standard drink = 0.6 oz pure alcohol)Sex and Gender InformationValueDate RecordedSex Assigned at BirthNot on fileLegal WnhKoil15/10/2025 2:18 PM ESTGender IdentityNot on fileSexual OrientationNot on filedocumented as of this encounter Plan of Treatment DateTypeDepartmentCare Team (Latest Contact Info)Vlerxdnidge01/18/2025 9:45 AM ESTAppointment at [facility] [address] [place], [place] [address] [place] [phone] 12/20/2025 2:30 PM EDTOffice Visit at [facility] [address] [place] [phone] Chad Chapa MD [address] [facility] 2, [facility] [address] [place] [address] documented as of this encounter Visit Diagnoses Not on filedocumented in this encounter Care Teams Team MemberRelationshipSpecialtyStart DateEnd Date Hang Naqvi MD [address] [place] [address] [facility] - [facility] Rxdbuynk85/1/25documented as of this encounter
--- OUTSIDE RECORDS SUMMARY | 2025-09-12 08:42 | XMS_ITS | Clinical Summary ---
Author Organization [facility] Address [address] [place] [address] Care Team Providers Care Digital Assistant Name Role Phone Hang Naqvi MD Primary Care Provider [phone] Hang Naqvi MD Unavailable Allergies No known active allergies Medications No known medications Active Problems ProblemNoted DateDiagnosed DateMass, cdmwnmq7805/09/2025 Assessment & Plan (05/09/2025 12:24 PM EDT): Soft mass on back left testicle likely corresponding to hydrocele. Check US scrotum. If abnormal orworsens can refer to urology. Generalized anxiety jmivcvkr37/12/2024 Assessment & Plan (11/29/2023 10:04 AM EST): [...] back pain10/08/2023MDD (major depressive disorder), recurrent episode, qeurlvgq55/12/2024 Assessment & Plan (11/29/2023 10:03 AM EST): Occasional symptoms but tolerable without medication and monitor. Assessment & Plan (11/04/2023 10:16 AM EST): Continued symptoms and start wellbutrin. Warned will take 2-3 weeks to notice improvement in mood. Assessment & Plan (10/08/2023 10:12 AM EST): Severe symptoms and not functioning well. Start celexa and warned will take 2-3 weeks to notice improvement in mood. Bwijiba8610/08/2023Left knee pain10/08/2023 Resolved Problems ProblemNoted DateDiagnosed DateResolved RsitCxgvyrz38Left otitis media with spontaneous rupture of /04/2024Hematuria, zadqkpqemcs94 Family History Medical HistoryRelationNameCommentsAlcohol abuseFatheretoh abuseNo Known ProblemsMotherRelationNameStatusCommentsFatherDeceasedMotherAlive Social History Tobacco UseTypesPacks/DayYears UsedDateSmoking Tobacco: Every MqmGsqbxgtqzx016 Started: 09/28/2000Smokeless Tobacco: Never Tobacco Cessation:Ready to Q uit: No; Counseling Given: Not Answered Comments:6-10 cigs/ day Alcohol UseStandard Drinks/WeekCommentsYes0 (1 standard drink = 0.6 oz pure alcohol)caffeine intake : energy drinks; sodaPHQ-2AnswerDate RecordedPatient Health Questionnaire-2 Chjdz261Sex and Gender InformationValueDate RecordedSex Assigned at BirthNot on fileLegal WmnKdiu6212/09/2022 6:39 PM EDT Gender IdentityNot on fileSexual OrientationNot on file Last Filed Vital Signs Vital SignReadingTime TakenCommentsBlood Cqiyrodp741/5808 11:30 AM EDT Wkmgo0661 11:30 AM BKWBwflmerhhar24.3 ??C (97.3 ??F)05/09/2025 11:30 AM EDTRespiratory Smje204405/09/2025 11:30 AM EDTOxygen Uoyewvooao72%05/09/2025 11:30 AM EDTInhaled Oxygen Concentration--Djhftp92.8 kg (176 lb)05/09/2025 11:30 AM JMEMkfdeq720.3 cm (5' 11 )05/09/2025 11:30 AM EDTBody Mass Index24.55005/09/2025 11:30 AM EDT Plan of Treatment Health MaintenanceDue DateLast DoneCommentsCT Acxcaxezasrg1979Colonoscopy 1980Colorectal Cancer Uawtcmdvd1979FIT-DNA1979FIT1979 FOBT1980 5520Fpyiyvppeesig1979Pneumococcal Vaccine: Pediatrics (0 to 5 Years) and At-Risk Patients (6 to 64 Years) (1 of 2 - PCV)1998COVID-19 Vaccine ( - 2024- season)2025Influenza Vaccine (#1)[address] [place] [phone] Care Teams Team MemberRelationshipSpecialtyStart DateEnd Date Hang Naqvi MD PCP - GeneralFamily Medicine10/28/23 Hang Naqvi MD [address] [place] [phone] PCP - [facility]11/26/23
--- OUTSIDE RECORDS SUMMARY | 2025-09-12 08:42 | XMS_ITS | Clinical Summary ---
Author Organization [facility] Address [address] [place] [address] Phone Care Team Providers Care Hall Monitor Name Role Phone Hang Naqvi MD Primary Care Provider + Allergies No known active allergies Medications MedicationSigDispense QuantityRefillsLast FilledStart DateEnd DateStatus aspirin 81 mg EC tablet Take 1 tablet (81 mg) by mouth once daily.Active Active Problems ProblemNoted DateDiagnosed DateBMI 26.0-26.9,adult08/27/2025urrent smoker 08/27/2025Shortness of tvldza3208/27/2025ifascicular block08/27/2025Precordial pain08/27/2025 Resolved Problems ProblemNoted DateDiagnosed DateResolved DateChest pain on iidqzkmk63/01/2025 08/27/2025 Encounters DateTypeDepartmentCare EqddRwuqocoxigr22/10/2025Results Follow-Up at [facility] [address] [facility] [address] [place] [phone] Ning Dewey LPN Stress Test09/04/2025 10:49 AM EST - 09/04/2025 11:59 PM ESTHospital Encounter at [facility] [address] [facility] [address] [place] [address] Shortness of breath; Bifascicular block Discharge Disposition: Home09/04/20259028Kzkukb52/01/2025 9:00 AM ESTOffice Visit at [facility] [address] [facility] [address] [place] [address] Chad Chapa MD Precordial pain (Primary Dx); Shortness of breath; Bifascicular block; BMI 26.0-26.9,adult; Current smoker; Screening for hyperlipidemia Discharge Disposition: Home08/27/20258065Dqvtao99/25/2025Scanned Document [facility] [address] [place] [phone] Scanning, Generic Provider from Last 3 Months Social History Tobacco UseTypesPacks/DayYears UsedDateSmoking Tobacco: Every DayCigarettes Tobacco Cessation:Counseling Given: Yes Alcohol UseStandard Drinks/WeekCommentsNever0 (1 standard drink = 0.6 oz pure alcohol)Sex and Gender InformationValueDate RecordedSex Assigned at BirthNot on fileLegal XmlTgsd68/10/2025 2:18 PM ESTGender IdentityNot on fileSexual OrientationNot on file Last Filed Vital Signs Vital SignReadingTime TakenCommentsBlood Ggjphbtz906/8609/04/2025 11:11 AM EST Iwxwv607609/04/2025 11:11 AM ESTTemperature--Respiratory Rate--Oxygen Saturation-- Inhaled Oxygen Concentration--Nhhgdl05.8 kg (187 lb)08/27/2025 9:03 AM ESTHeight 180.3 cm (5' 11 )08/27/2025 9:03 AM ESTBody Mass Index26.0808/27/2025 9:03 AM EST Plan of Treatment DateTypeDepartmentCare Team (Latest Contact Info)Pqumsjlebre01/18/2025 9:45 AM ESTAppointment at [facility] [address] [place] [phone] 12/20/2025 2:30 PM EDTOffice Visit at [facility] [address] [place] [phone] Chad Chapa MD [address] [place] [address] 2, [address] [address] Health MaintenanceDue DateLast DoneCommentsCT Ujcobqfvinln1979Colonoscopy 1979Colorectal Cancer Zxhcuwpqm1979FIT-DNA (Cologuard)1979FIT 1979HIV Xjzhnkzih1979Lipid Panel1979 9292Pnfegckbzytky1979 Yearly Adult Ghucvbon1979MMR Vaccines (1 of 1 - Standard series)1980 Diabetes Ofqkrpfek12/24/1997Hepatitis C Qwwjvkdsg00/24/1997Hepatitis B Vaccines (1 of 3 - 19+ 3-dose series)1998Pneumococcal Vaccine: Pediatrics and At- Risk Adult Patients (1 of 2 - PCV)1998DTaP/Tdap/Td Vaccines (1 - Tdap) 2001Influenza Vaccine (#1)5COVID-19 Vaccine (1 - season) 2025Zoster Vaccines (1 of 2)2029HIB VaccinesAged OutNo longer eligible based on patient's age to complete this topicHPV VaccinesAged OutNo longer eligible based on patient's age to complete this topicHepatitis A VaccinesAged OutNo longer eligible based on patient's age to complete this topic IPV VaccinesAged OutNo longer eligible based on patient's age to complete this topicMeningococcal VaccineAged OutNo longer eligible based on patient's age to complete this topicRotavirus VaccinesAged OutNo longer eligible based on patient's age to complete this topic Procedures Procedure NamePriorityDate/TimeAssociated DiagnosisCommentsSTRESS TEST ONLY, VLSDHQDXPrzsdtb83/09/2025 11:35 AM EST Shortness of breath Bifascicular block ECG 12-IVTOGcatmjd43/01/2025 9:25 AM EST Shortness of breath Precordial pain from Last 3 Months Results * STRESS TEST ONLY, EXERCISE (09/04/2025 [...] Narrative SYNGO - 09/04/2025 3:38 PM EST ?[address], [place] [address] ? Exercise Stress Test Patient Name: ?ADRIENNE ASHLEY ?Ordering Provider: ? [id number] BONILLA ? SAMMI Study Date: ?09/04/2025 ?Reading Physician: ? [id number] Bonilla ? Sammi FOLEY MRN/PID: ? [id number] ? Supervising Physician: Justino Bonilla ? Sammi FOLEY Accession#: ?[id number] ? Fellow: Date of /Age: 9 1980 / 45 years Fellow: Gender: ?M ?Nurse: ? Pam Galaviz Admission Status: ? Line Technician: ? NA Height: ?180.34 cm ?Technologist: Weight: ?84.82 kg ? Additional Staff: BSA: ? 2.05 m2 ? BMI: ? 26.08 kg/m2 ?Patient Location: Study Type: ?STRESS TEST ONLY Diagnosis/ICD: Bifascicular block-I45.2; Shortness of breath-R06.02 Indication: ?Dyspnea CPT Codes: ? Stress Test Interpretation-84357; Stress Test Supervision-[id number] Falls Risk: Low: Patient has low risk [...] and 86% of maximum predicted heart rate. [id number] Chad Chapa MD Electronically signed on 09/04/2025 at 3:38:37 PM Final Procedure Note Chad Chapa MD - 09/04/[address], [address] [place] [address] Exercise Stress Test Patient Name: ADRIENNE ASHLEY Ordering Provider: [id number] CHAPA Study Date: 09/04/2025 Reading Physician: [id number] Caraballo MRN/PID: [id number] Supervising Physician: Dwight Caraballo Fellow: Date of /Age: 9 1980 / 45 years Fellow: Gender: M Nurse: Whitney OLMEDO Admission Status: Line Technician: VIVI Height: 180.34 cm Technologist: Weight: 84.82 kg Additional Staff: BSA: 2.05 m2 BMI: 26.08 kg/m2 Patient Location: Study Type: STRESS TEST ONLY Diagnosis/ICD: Bifascicular block-I45.2; Shortness of breath-R06.02 Indication: Dyspnea CPT Codes: Stress Test Interpretation-00385; Stress TestSupervision-[id number] Falls Risk: Low: Patient has low risk [...] and 86% of maximum predicted heart rate. [id number] Chad Chapa MD Electronically signed on 09/04/2025 at [...] heart rate. Authorizing ProviderResult TypeResult StatusModavid Chapa [facility] [place] STRESS PROCEDURESFinal ResultPerforming OrganizationAddressCity/State/ZIP CodePhone Number SYNGO * ECG 12 Lead (08/27/2025 9:25 AM EST)Specimen (Source)Anatomical Location / LateralityCollection Method / VolumeCollection TimeReceived Time Narrative Chad Chapa MD - 08/27/2025 9:25 AM EST Bifascicular block with right bundle branch block and left anterior fascicular hemiblock Authorizing ProviderResult TypeResult StatusChad Chapa MDECG ORDERABLES Final Result from Last 3 Months Insurance [address] [place], [place] [id number] * Guarantor: Arline Ashley TypeRelation to PatientDate of BirthPhone Billing AddressPersonal/LrxufpNwrd1980 [facility] [address] [place], [place] [phone] Care Teams Team MemberRelationshipSpecialtyStart DateEnd Date Hang Naqvi MD [address] [place] [address] [facility] Rhrarsvx58/1/25
--- OUTSIDE RECORDS SUMMARY | 2025-09-12 08:42 | XMS_ITS | Clinical Summary ---
Author Organization [facility] Address [id number] [address] [place] [address] Care Team Providers Care Care Aide Name Role Phone Hang Naqvi MD Primary Care Provider [phone] Allergies No known active allergies Medications No known medications Social History Tobacco UseTypesPacks/DayYears UsedDateSmoking Tobacco: Every DaySmokeless Tobacco: NeverAlcohol UseStandard Drinks/WeekCommentsNever0 (1 standard drink = 0.6 oz pure alcohol)AUDIT-CAnswerDate RecordedQ1: How often do you have a drink containing alcohol?Never1Average Number of DrinksNot on file11/11/2020 Frequency of Binge DrinkingNot on file1ChildcareAnswerDate Recorded IxqlkirpyYwqsiek71/15/2021mploymentAnswerDate RecordedEmploymentUnknown 1Purpose - LifeAnswerDate RecordedPurpose and direction in lifeUnknown 11/11/2020ex and Gender InformationValueDate RecordedSex Assigned at BirthNot on fileLegal EnwYfnr5505/02/2015 11:53 AM EDTGender IdentityNot on fileSexual OrientationNot on file Last Filed Vital Signs Vital SignReadingTime TakenCommentsBlood Kpaahvaq036/76011/11/2020 11:01 AM EST Jmktj881111/11/2020 11:10 AM GMOOpsooxhvfws24.6 ??C (97.9 ??F)11/11/2020 7:29 AM ESTRespiratory Qqbv301611/11/2020 11:10 AM ESTOxygen Aiqjrwgxoj82%11/11/2020 11:09 AM ESTInhaled Oxygen Concentration--Xlznqw15.4 kg (175 lb)11/11/2020 7:29 AM EST Iikwec031.9 cm (6')11/11/2020 7:29 AM ESTBody Mass Index23.7311/11/2020 7:29 AM EST Plan of Treatment Health MaintenanceDue DateLast DoneCommentsDepression Fbroqgtey89/24/1991Tobacco Ibyfekexo07/24/1991Adult BMI Epieiqgwm58/24/1997DTaP,Tdap and Td Vaccines (1 - Tdap)1998Influenza Rueusas5905/28/2025 Medical Devices Not on file Insurance * Guarantor: Farooq GarzaAccount TypeRelation to PatientDate of PhoneBilling AddressPersonal/BzxhtqAhmn1980 [address] [address] Care Teams Team MemberRelationshipSpecialtyStart DateEnd Date Hang Naqvi MD PCP - GeneralFamily Medicine11/11/20
--- OUTSIDE RECORDS SUMMARY | 2025-09-12 08:42 | XMS_ITS | Encounter Summary ---
Author Organization [facility] Address [address] [place] [address] Phone Care Team Providers Care Collection Systems Worker Name Role Phone Hang Naqvi MD Primary Care Provider + Reason for Visit * ReasonOnset VcvfFvyuoikgExhocjo24/10/2025 Encounter Details DateTypeDepartmentCare Team (Latest Contact Info)Nbgdkpyjwcx30/10/2025Results Follow-Up [facility] [address] [place] [phone] Ning Dewey LPN Stress Test Social History Tobacco UseTypesPacks/DayYears UsedDateSmoking Tobacco: Every DayCigarettes Alcohol UseStandard Drinks/WeekCommentsNever0 (1 standard drink = 0.6 oz pure alcohol)Sex and Gender InformationValueDate RecordedSex Assigned at BirthNot on fileLegal FigIaon78/10/2025 2:18 PM ESTGender IdentityNot on fileSexual OrientationNot on filedocumented as of this encounter Miscellaneous Notes * Telephone Encounter - Ning Dewey LPN - 09/05/2025 9:05 AM EST Result Communication Resulted Orders Stress Test Narrative [address], [place] [address], [place], [place] [address] Exercise Stress Test Patient Name: ADRIENNE ASHLEY Ordering Provider: [id number] CHAD CHAPA Study Date: 09/04/2025 Reading Physician: Justino Chapa MD MRN/PID: [id number] Supervising Physician: Justino Chapa MD Fellow: Date of /Age: 9 1980 / 45 years Fellow: Gender: M Nurse: Pam Barrera RN Admission Status: Signal Constructor: VIVI Height: 180.34 cm Technologist: Weight: 84.82 kg Additional Staff: BSA: 2.05 m2 BMI: 26.08 kg/m2 Patient Location: Study Type: STRESS TEST ONLY Diagnosis/ICD: Bifascicular block-I45.2; Shortness of breath-R06.02 Indication: Dyspnea CPT Codes: Stress Test Interpretation-24032; Stress Test Supervision-[id number] Falls Risk: Low: Patient has low risk [...] and 86% of maximum predicted heart rate. [id number] Chad Chapa MD Electronically signed on 09/04/2025 at 3:38:37 PM Final Impression Summary: 1. Normal exercise stress test without diagnostic ST-T changes for ischemia. 2. No provoked chest pain or arrhythmia. 3. Appropriate hemodynamic response to exercise. 4. Fair exercise tolerance. 5. Normal heart recovery phase. 6. Patient exercised for a total of 8 minutes achieving workload of 10.1 METS and 86% of maximum predicted heart rate. 9:05 AM Results were successfully communicated with the patient and they acknowledged their understanding. * Telephone Encounter - Ning Dewey LPN - 09/05/2025 9:04 AM EST ----- Message from Chad Chapa MD sent at 09/04/2025 3:42 PM EST ----- Advise stress test looks good ----- Message ----- From: Wilberto Syngo - Cardiology Results In Sent: 09/04/2025 3:38 PM EST To: Chad Chapa MD documented in this encounter Plan of Treatment DateTypeDepartmentCare Team (Latest Contact Info)Chthmxitoss20/18/2025 9:45 AM ESTApp[address] [phone] 12/20/2025 2:30 PM EDTOffice Visit [facility] [address] [place] [phone] Chad Chapa MD [address] [place] [address] 2, [address] [place] [address] documented as of this encounter Visit Diagnoses Not on filedocumented in this encounter Care Teams Team MemberRelationshipSpecialtyStart DateEnd Date Hang Naqvi MD [address] [place] [address] PCP - GeneralFamily Uxnmffks70/1/25documented as of this encounter
--- NOTE | 2025-09-12 09:00 | CA_ITS ---
Patient Name: ADRIENNE ASHLEY MR#: [id number] : 1980 Exam Date: 09/12/2025 Ordering Doctor: DR IGNACIO MANZANARES M.D. ECHOCARDIOGRAM REPORT PROCEDURE: CA ECHO DOPPLER COMPLETE INDICATIONS: Shortness of breath, smoker, COPD COMPARISON: None. DESCRIPTION: COMPLETE ECHOCARDIOGRAM Real-time transthoracic echocardiography with 2D, M-mode, spectral and color flow Doppler performed. QUALITY: Technical quality was good. LEFT VENTRICLE: Normal chamber size. Normal left ventricular wall thickness. Normal systolic function. Estimated left ventricular ejection fraction is 60%. LV EF: Normal left ventricular ejection fraction, (>55%). DIASTOLIC: Normal diastolic function. ATRIAL SEPTUM: Visually appears intact. LEFT ATRIUM: Normal chamber size. RIGHT ATRIUM: Normal chamber size. RIGHT VENTRICLE: Normal chamber size. Normal right ventricular systolic function. TRICUSPID VALVE: Normal mobility and thickness. No stenosis with trivial regurgitation. Doppler studies reveal mildly (35-45) elevated right sided pressures. RVSP 40 mmHg MITRAL VALVE: Normal mobility and thickness. No evidence of mitral valve stenosis. There is no mitral annular calcification. Trivial mitral regurgitation. AORTIC VALVE: Normal trileaflet appearance. No visible sclerosis. Normal leaflet mobility. No evidence of aortic valve stenosis. No aortic regurgitation. AORTIC ROOT: Normal diameter and appearance, measuring 3.8 cm. PULMONIC VALVE: Normal thickness and mobility. No stenosis. Trivial regurgitation. PERICARDIUM: No evidence of pericardial effusion. IVC: Collapses with inspiration. IVC is dilated (2.4 cm) PLEURA: CONCLUSION: 1. Normal ventricular size and systolic function. Estimated LVEF is 60%. 2. Normal diastolic function. 3. No significant valvular dysfunction. 4. Normal right-sided pressures. Adult Echocardiography Procedure Report Left Ventricle LVEDD (3.7 - 5.6 cm): 4.90 cm LVESD (2.2 - 4.0 cm): 3.32 cm LVIVS thickness (0.6 - 1.2 cm): 0.99 cm LVPW thickness (0.5 - 1.0 cm): 0.87 cm e': 0.19 m/s E - e': 4.59 LVOT Max Gradient: 4.18 mm[Hg] LVOT Area (cm2): 1.02 m/s Peak Velocity (LVOT): 1.02 m/s Mean Velocity (LVOT): 0.73 m/s LVOT Diameter 2.25 cm Left Ventricular Ejection Fraction: 60 % Left Atrium LA Volume Index (2D A2C): 30.39 ml/m2 Left Atrium Systolic Dimension: 3.38 cm Mitral Valve MV E to A Ratio: 1.25 Mitral Valve A-Wave Peak Velocity: 0.70 m/s Mitral Valve E-Wave Peak Velocity: 0.87 m/s Right Ventricle Aorta AO Root Diam: 3.76 cm Aortic Valve AoV Area (Peak Graeme): 3.05 cm2, 3.05 cm2 AoV Area (VTI): 2.91 cm2, 2.91 cm2 Peak Velocity(Antegrade Flow): 1.33 m/s Peak Gradient(Antegrade Flow): 7.11 mm[Hg] Mean Velocity(Antegrade Flow): 0.89 m/s Mean Gradient(Antegrade Flow): 3.66 mm[Hg] Velocity Time Integral: 29.34 cm Tricuspid Valve Peak Velocity (Regurgitant Flow): 2.85 m/s, 2.24 m/s, 2.38 m/s Pulmonic Valve Mean Gradient: 2.64 mm[Hg] Mean Velocity: 0.77 m/s Peak Velocity: 1.11 m/s Peak Gradient: 4.94 mm[Hg] Right Atrium Right Atrium Systolic Pressure: 42.43 ml, 42.43 ml Dictated by: Bernardo Cottrell M.D. on 09/12/2025 at 20:18 Approved by: Bernardo Cottrell M.D. on 09/12/2025 at 20:21
== END 2025-09-12 08:38 | disposition home or self-care (01) ==
LOC: CARD 08:38
PROVIDERS: PCP Family Medicine; Visit Provider Internal Medicine Cardiovascular Disease
DX: R06.02 Shortness of breath (principal); I45.2 Bifascicular block
CPT/HCPCS: 93306